=== PATIENT | male | born 1935 | race Caucasian/White ===

== ENCOUNTER 2016-05-25 05:55 | Inpatient (IN) | payer MEDICARE, OTHER ==
--- NOTE | ~2016-05-25 | CR72 ---
[facility] A Service of [facility] & [facility] RADIOLOGY TEXT RESULTS PATIENT: ASHLEY MURRAY LOCATION: [facility]-19 : 33 UNIT #: [id number] AGE: [address]: Victor M Knox MD SEX: M ORDER DR: [id number] [facility] [address] [facility]. [place], [place] [address] [id number] MR#: [id number] Acc #: [id number] NAME: ASHLEY MURRAY. : 1935 SEX: M STUDY DATE/TIME: 05/25/2016 5:24 UNIT: CEDOF ROOM: [id number] STUDY DESCRIPTION: CR Chest Single View Portable Attending Physician: Victor M Knox M.D. Ordering Physician: Lan Rutledge D.O. Primary Care Physician: Cedric Andrews M.D. MEDICAL IMAGING REPORT This report is preliminary unless electronic signature is present EXAM AP portable chest, 05/25/2016 HISTORY 81-year-old male in the ED complaining of 3-week history of nausea, abdomen pain, hematuria. TECHNIQUE AP portable upright chest x-ray. FINDINGS The exam shows no definite active disease in the chest. Mild scarring or atelectasis in the lung bases. Low lung volumes. Stable mild to moderate cardiomegaly. Mid and upper lungs clear. No significant change since 08/31/2013. IMPRESSION No active disease. No change since 08/31/2013. Dictated by... Juliano Michaels M.D. THIS IS AN ELECTRONICALLY VERIFIED REPORT Juliano Michaels M.D. at 05/25/2016 9:54 PM LINK/jamie TD: 05/25/2016 08:19 JOB #: [id number] MEDICAL IMAGING REPORT Page 1 of 1 COPY
--- NOTE | ~2016-05-25 | CO ---
Unit #: [id number] #: [id number] Patient: ASHLEY STAFFORD [id number] [facility]. [place], [place] [address] [id number] Roverto MR#: [id number] NAME: ASHLEY STAFFORD. ROOM: [facility] Age: 81 Sex: M Admission Date: 05/25/2016 : 1935 Attending Physician: Victor M Knox M.D. Primary Care Physician: Cedric Andrews M.D. Consultation Date: 05/25/2016 CONSULTATION REPORT REASON FOR CONSULTATION Acute kidney injury. HISTORY OF PRESENT ILLNESS The patient is an 81-year-old male with multiple chronic medical conditions who presented to the emergency room with actually some GI distress and was found to have an acute ME and has subsequently been taken to the laboratory development technician and has had intervention. We were asked to see because of a pre-cath creatinine of 1.2. I had actually seen the patient about 7 years ago now for some renal problems back in February of 2010. At that time he had had some issues with urinary retention and has subsequently undergone a transurethral resection of the prostate by Dr. Bañuelos. He had acute kidney injury at that time with hypotension while on Diovan and HCTZ. During that hospital admission, it looks like his creatinine went from 2.6 down to 0.8, which is his baseline going into 2013. Coming back from the laboratory development technician, he did have some shortness of breath, and there was some concern about possible dye allergy, so he was given some Benadryl and Medrol, as well as some Lasix. He seems to be doing better now. They have had some issues with his heart rhythm and A fib post cath. He denies any chest discomfort to me, no shortness of breath at the present time. Wood catheter is in place with nonbloody urine. He apparently had some hematuria about a week ago. He says that he has not had anything to drink now for about 4 weeks. He has chronic swelling issues that have actually improved according to him. It sounds like he had been getting some diuretics in addition to Hydrochlorothiazide but was not taking those before coming in. PAST MEDICAL HISTORY His past medical history is significant for coronary artery disease, hypertension, DVT, PE, BPH with urinary retention, gout, hyperlipidemia, alcoholism, polymyalgia rheumatica, A fib. PAST SURGICAL HISTORY Rotator cuff surgery and an inguinal hernia repair, cataract surgery, vasectomy, multiple coronary interventions. HOME MEDICATIONS 1. Valsartan/HCTZ 320/25 mg a day. 2. Allopurinol 300 mg a day. 3. Ecotrin daily. 4. Folic acid 1 mg a day. 5. Warfarin as directed. 6. Ranitidine 150 mg a day. 7. Colcrys as needed. Unit #: [id number] #: [id number] Patient: ASHLEY STAFFORD 8. Vitamin B12 daily. 9. Gas-X as needed. ALLERGIES Morphine, Demerol, shellfish (severe gout). FAMILY HISTORY He denies any family history of kidney problems to me. There is a significant family history, however, of heart disease and hypertension. SOCIAL HISTORY The patient tells me that he has never smoked. Again, last drink was about 4 weeks ago. No drug use. Family not currently present in the room. REVIEW OF SYSTEMS A complete 12-point review of systems was attempted with the above findings. The patient denies any headaches or dizziness at this time. He has had no fever or chills. No nosebleeds, sore throat or earache. No cough or hemoptysis. No hematemesis. No bright red blood per rectum or melena. No rash or itching. No flank pain. No preadmission night sweats or hot flashes. No intolerance to heat or cold. No bleeding issues noted. Unless otherwise indicated, the review of systems was negative. PHYSICAL EXAMINATION VITAL SIGNS: The patient is afebrile. Pulse 143, respiratory rate 24, blood pressure 156/68. Lowest blood pressure was 90/67. GENERAL: This is a pleasant swallow study anxious 81-year-old male who is alert now, seems to be calmer since he arrived in the ICU according to the nurses, in no acute distress. HEENT: Head is atraumatic, normocephalic. Eyes shows pink conjunctiva with no scleral icterus. No nasal drainage or nosebleeds. Oropharynx is without thrush. NECK: Neck shows no rigidity. CARDIOVASCULAR: Heart is tachycardic and irregular with murmur present without rub. RESPIRATORY: Lungs are clear anteriorly at this time, and I did not hear any wheezing or rhonchi. Breathing is nonlabored. ABDOMEN: Abdomen is soft, nontender, nondistended. Bowel sounds are present. EXTREMITIES: No lower extremity clubbing or cyanosis. He has trace ankle edema bilaterally. SKIN: Skin is dry with significant wrinkling in his lower legs and feet. No rashes. GENITOURINARY EXAM: Wood catheter is in place with nonbloody urine. MUSCULOSKELETAL: No joint effusions noted. NEUROLOGIC: Cranial nerves are grossly intact with no gross motor deficits. LYMPHATIC EXAM: There is no neck cervical lymphadenopathy. PSYCHIATRIC EXAM: Noteworthy for some anxiety. Does not appear to be depressed. DIAGNOSTIC STUDIES LABS: CBC today - White count 11, hemoglobin 14, platelet count 143. ABG at 3:20 showed pH of 7.4, pCO2 34, pO2 129, bicarb 23. Urinalysis did have significant white blood cells and bacteria with only 2-5 red blood cells per high-powered field. Culture is pending. Last troponin was 4.1. Lipid profile - Cholesterol was okay. TSH level 1.37. BNP this morning was just 99. Sodium was 131, potassium 4.1, bicarb 26, creatinine 1.2, Unit #: [id number] #: [id number] Patient: ASHLEY STAFFORD albumin normal at 3.5. INR 1.4. Prior to these labs, again, his creatinine was 0.8 in September 2013. Previous urinalyses have demonstrated at most 1+ protein, but most of them have been negative. IMAGING: CT of the abdomen and pelvis was done without contrast. Small right kidney cyst. No visible stones. Chest x-ray done early this morning showed no active disease. ASSESSMENT AND PLAN 1. Acute kidney injury. This appears to be mild and likely related to his ME and Diovan/HCTZ use. This medication is being held, and he just got back from laboratory development technician. His sats are good, as is his oxygenation on ABG, so I will give him some IV fluids to assist with cardiac cath dye clearance. Will also give him 2 doses of Mucomyst and recheck in the morning. 2. Urinary tract infection. The patient has been started on Rocephin with culture pending. Nothing on CT scan that would suggest a cause for the hematuria, so this just may be a UTI. 3. Hypertension. Will defer blood pressure meds to cardiology with his rhythm issues post cath. 4. Hyponatremia. We will be stopping his Hydrochlorothiazide and using saline-based fluids for replacement. 5. ME status post intervention. 6. History of gout. I will check a uric acid level in the morning. 7. Alcoholism with no drinking, per him, for 4 weeks. 8. Chronic lower extremity edema with no need for diuresis at this time. 9. Valvular heart disease with aortic stenosis. 10. History of PE, on Coumadin at home. 11. History of polymyalgia rheumatica. 12. History of BPH status post TURP, now with a Wood. 13. Post cath A fib. I would like thank Dr. Knox for this consultation and the opportunity to participate in the evaluation and care of Mr. Stafford. Dictated by... Mark Fontaine Jr., MKris. DONNA/jaimee TD: 05/26/2016 07:07 JOB #: [id number] CONSULTATION REPORT Page 1 of 1 X Mark Fontaine MD X CONSULTATION REPORT
--- NOTE | ~2016-05-25 | CO ---
Unit #: [id number] #: [id number] Patient: ASHLEY MURRAY [id number] [facility]. [place], [place] [address] [id number] I MR#: [id number] NAME: ASHLEY MURRAY. ROOM: [facility] Age: 81 Sex: M Admission Date: 05/25/2016 : 1935 Attending Physician: Victor M Knox M.D. Primary Care Physician: Cedric Andrews M.D. CONSULTATION REPORT REASON FOR CONSULTATION Possible GI bleed. HISTORY OF PRESENT ILLNESS The patient is an 81-year-old male who actually presented with complaints of epigastric pain for about 3 weeks. He was feeling dizzy and diaphoretic, and was subsequently evaluated in the ER. EKG showed acute ST elevation. Intervention is being completed by Cardiology and he is currently on balloon pump at this time. He is still on multiple drips for Cardiology including both dopamine, Mason-Synephrine, heparin. About a week ago, per the family, he was having complaints of blood in his urine, which has happened intermittently in the past and it has since resolved. Evidently, when the patient had an NG placed, he did have some darker aspirate, however, at this time, the NG has been removed. He is on b.i.d. PPI dosing. PAST MEDICAL HISTORY Coronary artery disease, hypertension, history of DVT and PE, BPH with urinary retention, gout, hyperlipidemia, alcoholism, polymyalgia rheumatica, atrial fibrillation, lupus, rotator cuff surgery, inguinal hernia repair, cataract surgery, vasectomy as well as multiple coronary interventions. HOME MEDICATIONS Valsartan/HCTZ, allopurinol, Ecotrin, folic acid, warfarin, ranitidine, Colcrys, vitamin B12, Gas-X. ALLERGIES Morphine, Demerol and shellfish. FAMILY HISTORY Significant for heart disease and hypertension. SOCIAL HISTORY The patient does drink heavy, however, he has been sober for about 4 weeks. Denies tobacco or illicit drug use. REVIEW OF SYSTEMS A complete 10-point review of systems was completed and negative except as mentioned in HPI. PHYSICAL EXAMINATION GENERAL: The patient is an 81-year-old male, currently in no acute distress. Unit #: [id number] #: [id number] Patient: ASHLEY MURRAY VITAL SIGNS: Temperature is 98.4, pulse is 97, blood pressure is 107/43, respirations 15. HEENT: PERRLA. NECK: Supple. CARDIAC: Murmur present. RESPIRATORY: Clear to auscultation. ABDOMEN: Soft, rounded, nontender, nondistended. EXTREMITIES: The patient does have significant bruising or ecchymoses everywhere. DIAGNOSTIC STUDIES IMAGING STUDIES: CT of abdomen and pelvis was completed, showing no acute abnormalities. LABORATORY RESULTS: Chemistry; glucose 166, BUN and creatinine are 32 and 1.2 respectively, INR is 1.5 yesterday. White count 13.4, hemoglobin 11.2, hematocrit 33.6, and platelets are 113. Hemoglobin at admission was 13.7. ASSESSMENT/PLAN 1. Acute ST-segment elevation myocardial infarction per Cardiology, currently on multiple drips as well as the balloon pump. 2. Questionable gastrointestinal bleed. The patient has had a slight drop in his hemoglobin since he has been here. We will continue to watch for now. At the current time, he is a rather poor candidate for endoscopy just due to his cardiac grounds. If there is acute drop in his hemoglobin, we will consider an EGD at that time. Continue b.i.d. PPI therapy. We will order occult stool to further evaluate GI source of blood loss. 3. Acute kidney injury. 4. Alcohol abuse. Thank you for this interesting consult. We will continue to follow along. Dictated by... Yanique Caldwell A.P.R.N. for Mckay Bales M.D. MENDEL/liedy TD: 05/27/2016 23:53 JOB #: [id number] CONSULTATION REPORT Page 1 of 1 X X CONSULTATION REPORT
--- NOTE | ~2016-05-25 | EKG ---
PATIENT: ASHLEY MURRAY UNIT #: [id number] Ventricular Rate: 167 BPM Atrial Rate: 167 BPM P-R Interval: 128 ms QRS Duration: 70 ms Q-T Interval: 256 ms QTC Calculation(Bezet): 427 ms P [place]: 17 degrees Calculated R [place]: 20 degrees Calculated T [place]: 111 degrees Diagnosis Line: Sinus tachycardia Diagnosis Line: Low voltage QRS Diagnosis Line: Muscle tremor Diagnosis Line: Abnormal ECG Diagnosis Line: When compared with ECG of 25-MAY-2016 13:56, Diagnosis Line: Vent. rate has increased BY 79 BPM Diagnosis Line: ST now depressed in Anterior leads Diagnosis Line: Confirmed by RICHY MISTRY MD ([id number]) on 05/26/2016 Diagnosis Line: 7:47:46 AM INTERPRETING MD: FIDELIA WELLS
--- NOTE | ~2016-05-25 | HP ---
Unit #: [id number] #: [id number] Patient: ASHLEY MURRAY [id number] [facility]. [address] [facility]. [place], [place] [address] [id number] I MR#: [id number] NAME: ASHLEY MURRAY. ROOM: [id number] Age: 81 Sex: M Admission Date: 05/25/2016 : 1935 Attending Physician: Victor M Knox M.D. Primary Care Physician: Cedric Andrews M.D. HISTORY AND PHYSICAL HISTORY OF PRESENT ILLNESS This is an 81 year old with past medical history of coronary artery disease, history of three stents which were last placed in 2008 to the left circumflex and RCA. Also, had a 2D echo in 2009 which showed a LV ejection fraction of 50% to 55% with aortic stenosis, unknown severity, history of pulmonary embolism. He is currently on Coumadin, hypertension, alcohol abuse, benign prostate hypertrophy, polymyalgia rheumatica. He had an EGD in August 2013 which showed nonobstructive Schatzki ring with small hiatal hernia. He also has lupus. He has a hypercoagulable state with lupus and that is why he is currently on anticoagulation. He has had both DVTs and PEs in the past. He was admitted for feeling sick to his stomach type symptoms, epigastric pain that has been present for the last three weeks. Complains of dizziness and diaphoretic, shaking yesterday. He decided to be seen in the ER. On arrival to the emergency room, his EKG showed an acute ST elevation in the lateral wall and his troponin was 1.42. CT of the abdomen and chest was done. No acute abnormality within the abdomen or pelvis. He did have a small benign appearing right renal cyst unchanged from November 21, 2012. Vital signs on admission: Heart rate was 114, blood pressure is 110/63, temperature was 97.9, weight was 114 kg. His BMI was 36. Glucose was found to be 167, sodium 131. BNP was 99. Total cholesterol 123, triglycerides 37, LDL 68, HDL 48. AST was 32. ALT was 42. INR was 1.4. WBC 11.5, hemoglobin 13.7, hematocrit 41.1, platelets 174,000. PAST SURGICAL HISTORY 1. Inguinal hernia repair. 2. Rotator cuff repair. ALLERGIES Morphine, Demerol. HOME MEDICATIONS 1. Losartan/hydrochlorothiazide 320/25 mg daily. 2. Allopurinol 300 mg daily. 3. Aspirin 325 daily. 4. Folic acid 1 mg daily. 5. Coumadin alternate 3 mg and 4 mg daily. 6. Ranitidine 150 mg daily. 7. Colcrys 0.5 mg as needed for gout. 8. Vitamin B12 at 2500 mg daily. 9. Gas-X 125 mg as needed. Unit #: [id number] #: [id number] Patient: ASHLEY MURRAY SOCIAL HISTORY He lives at home. His and family are at the bedside. He has never smoked. There are notes that he consumes alcohol on a binging-type basis. FAMILY HISTORY Reviewed and remarkable for heart disease and high blood pressure. REVIEW OF SYSTEMS A 10-point review of systems was negative except otherwise as noted above in the HPI. PHYSICAL EXAMINATION GENERAL: He is awake and appears in no acute distress. VITAL SIGNS: He is 97.7, pulse 107, respirations 28, 98% on supplemental oxygen, blood pressure 90/67. HEENT: Pupils are equal, round, and reactive to light. Oral mucosa is moist. He has good dentition. Normocephalic and atraumatic. NECK: Supple is supple with no JVD noted. No auscultated bruits. LUNGS: Clear with diminished breath sounds. No wheezes, rales, or rhonchi heard. He has low inspiratory effort. CARDIOVASCULAR: He is in a regular rhythm with tachycardic rate. S1, S2 heard. He has distant heart sounds. ABDOMEN: Distended and soft and nontender. No mass is noted. He does have mild hepatojugular reflux. EXTREMITIES: He has venous stasis, chronic hyperpigmentation to bilateral lower extremities and bilateral lower extremity edema with enlargement of ankles. He has 2+ pulses. He has no calf tenderness. NEUROLOGIC: He has no focal deficits noted. He is alert and oriented x3 and pleasant and cooperative. SKIN: Warm, pink, and dry except for bilateral lower extremities with hyperpigmentation from chronic edema. DIAGNOSTIC STUDIES LABORATORY: Point of care troponin as noted above when he arrived to the ER was 1.42 and on recheck four hours later was 4.17. Chemistry: Sodium 131, potassium 4.1, chloride 96, CO2 of 26, BUN 23, creatinine 1.2, glucose 167. Magnesium is 1.8. AST 32, ALT 42. Amylase 23, lipase 25. BNP 99. Lipids: Cholesterol 123, triglycerides 37, LDL 68, HDL 48. TSH 1.37. PT 15.2, INR 1.4. CK-MB was 32.3. WBC 11.5, hemoglobin 13.5, hematocrit 41.1, platelet count 174,000. Urinalysis was also done. It showed 2+ leukocytes, trace protein, 1 urobilinogen, WBCs 50-100, urine bacteria was 4+. IMAGING: Chest x-ray, May 25, 2016: No active disease. No change since last exam on August 31, 2013. CT abdomen and pelvis as stated above in the HPI. No acute abnormality. CARDIOVASCULAR: A 12-lead EKG showed sinus tachycardia with some premature supraventricular complexes and with frequent PVCs. He did have some ST elevation in lead I, lead II which were quite different than his last EKG which was reviewed and done on August 31, 2013. He had another EKG this morning on May 25, 2016 at 8:03 which showed sinus rhythm with some PACs, low-voltage QRS, again with some nonspecific ST abnormality. It appears lead II, he has some ST elevation mildly, flattening or inverted T-waves possibly in V4 through V6. IMPRESSION Unit #: [id number] #: [id number] Patient: ASHLEY MURRAY 1. Acute ST elevated lateral wall myocardial infarction. 2. Obesity. 3. History of coronary artery disease, status post stenting, last in 2008. 4. Normal left ventricular function with last ejection fraction in 2009 of 50% to 55%. 5. Aortic stenosis with unknown severity. 6. Lupus. 7. History of anticoagulable state with pulmonary embolus and deep venous thrombosis, managed on Coumadin. 8. Hypertension. 9. Alcohol abuse. PLAN We had trended his troponin. His repeat troponin was markedly elevated at 4.17. He will be going for a cardiac cath today per Dr. Knox. Heparin drip has been started with a 5000 unit bolus and Integrilin drip has also been started STAT. He had a 2D echo done this morning that is pending and we will review that. He had a STAT EKG as stated above. We will add labs for the morning and trend his troponin. Further plan post cath per Dr. Ummat. Dictated by RON Giraldo M.D. TA/ch TD: 05/25/2016 10:27 JOB #: [id number] HISTORY AND PHYSICAL Page 1 of 1 X X HISTORY AND PHYSICAL
--- NOTE | ~2016-05-25 | CO ---
Unit #: [id number] #: [id number] Patient: ASHLEY STAFFORD [id number] [facility]. [place], [place] [address] [id number] I MR#: [id number] NAME: ASHLEY STAFFORD. ROOM: [facility] Age: 81 Sex: M Admission Date: 05/25/2016 : 1935 Attending Physician: Victor M Knox M.D. Primary Care Physician: Cedric Andrews M.D. CONSULTATION REPORT We were asked to see him by Dr. Knox. HISTORY OF PRESENT ILLNESS Mr. Stafford is an 81-year-old male followed in my office for many years, who apparently developed abdominal pain about 3 weeks ago. He did see his primary doctor about a week ago, but was given some medicine for nausea. This abdominal pain was more of a dull pain intermittent, but then he worsened and came to the ER on the morning of 05/25/2016. His discomfort became severe and he was shaking, and had some shortness of air, nausea, and diaphoresis. He did already have a known coronary artery disease and has been seen by Dr. Downey in the past as well as Dr. Gibbons. On presentation in the ER, he was initially thought to have pneumonia, but then it was found that he had an ST-elevation NC. He went to the labor representative on 05/25/2016 and had a proximal LAD 99%, which responded to balloon and a stent was placed. He had a mid circumflex 75%. He had an ejection fraction that was quite low at 30% and maybe even as low as 20% and a balloon pump was placed by Dr. Knox; however, he really has not been on the ventilator. Presently, breathing is fairly good for the most part. He has a little bit of a cough. He never smoked. PAST MEDICAL HISTORY Significant for pulmonary embolism, lupus anticoagulant, coronary artery disease, hypertension, benign prostate hypertrophy, gout, hyperlipidemia, alcoholism, Schatzki ring, hiatal hernia, hypertension. MEDICATIONS On admission had included Valsartan-hydrochlorothiazide 320-25 daily, allopurinol 300 mg p.o. daily, Ecotrin 325 mg p.o. daily, folic acid 1 mg daily, Coumadin 3 to 4 mg p.o. daily, Zantac 150 mg p.o. daily, Colcrys 0.6 mg p.o. daily, vitamin B12 25 mg p.o. daily, Gas-X 125 mg p.o. daily. ALLERGIES Morphine, meperidine, shellfish. SOCIAL HISTORY He never smoked. FAMILY HISTORY Significant for heart disease in uncles. No history of lung disease. REVIEW OF SYSTEMS He did have the nausea, but not vomiting. No diarrhea. Appetite has been down a little bit. He has had bruising. All other systems are negative except as mentioned. Unit #: [id number] #: [id number] Patient: ASHLEY STAFFORD PHYSICAL EXAMINATION GENERAL: He presents as an older male, in no acute distress. VITAL SIGNS: Temperature was 97.7, pulse 82, respirations 14, blood pressure 104/67, saturation right now is at 98% on 4 L nasal cannula. NECK: Without adenopathy. He has got a right IJ line. LUNGS: His breathing is not labored. He has inspiratory crackles left base. HEART: Regular. ABDOMEN: Soft. Bowel sounds are present. EXTREMITIES: Without edema. NEUROLOGIC: He is awake and alert. He presentation designer equally bilaterally. He is able to speak in full sentences. DIAGNOSTIC STUDIES LABORATORY RESULTS: He had BMP today with a BUN of 32, creatinine 1.2. Bicarb was 26. His white blood cell count was 15,000, H and H 11 and 33, 113,000 platelets. When he came in, his platelet count was 174,000. His platelet count is only 61,000 in 09/2013. He had urine growing out E. coli sensitive to Rocephin, nonsensitive to ampicillin. He had blood cultures, 2/2 gram negative rods. IMAGING STUDIES: Chest x-ray to my exam revealed right IJ line okay. He has a little bit of increased interstitial markings bilaterally. He has fluid outlying the right minor fissure, may be a little bit of atelectasis versus infiltrate in left base. IMPRESSION 1. Acute on chronic respiratory failure, hypoxemic in nature. 2. Acute ST elevation myocardial infarction. 3. Cardiogenic shock, now on a balloon pump. 4. Coronary artery disease. 5. Sepsis with urinary tract infection, because of E. coli. 6. Alcoholism. 7. Thrombocytopenia. PLAN I will stop the Zosyn and start Rocephin based on sensitivities from the urine. It is likely that Rocephin will do just as well. I would like to watch his platelet count and he may need heparin dependent antibody test. However, it is notable that he has had thrombocytopenia before. He is saturating acceptably presently on 4 L nasal cannula. Thank you very much for allowing me to participate in care. Dictated by... Lulu Lara/leidy TD: 05/27/2016 19:24 JOB #: [id number] CC: Lulu Jesus M.D. Unit #: [id number] #: [id number] Patient: ASHLEY STAFFORD CONSULTATION REPORT Page 1 of 1 X Cameron Banks MD CONSULTATION REPORT
--- NOTE | ~2016-05-25 | EKG ---
PATIENT: ASHLEY MURRAY UNIT #: [id number] Ventricular Rate: 105 BPM Atrial Rate: 105 BPM P-R Interval: 178 ms QRS Duration: 90 ms Q-T Interval: 342 ms QTC Calculation(Bezet): 452 ms P Burton: 61 degrees Calculated R Burton: 8 degrees Calculated T Burton: 56 degrees Diagnosis Line: Sinus tachycardia with Premature supraventricular Diagnosis Line: complexes and with frequent Premature ventricular Diagnosis Line: complexes Diagnosis Line: Nonspecific ST and T wave abnormality Borderline Diagnosis Line: with 1st degree A-V block Diagnosis Line: Abnormal ECG Diagnosis Line: No previous ECGs available Diagnosis Line: Confirmed by JACQUELINE ALCAZAR MD ([id number]) on 05/26/2016 Diagnosis Line: 9:34:40 AM INTERPRETING MD: INGE WELLS
--- NOTE | ~2016-05-25 | EKG ---
PATIENT: ASHLEY MURRAY UNIT #: [id number] Ventricular Rate: 92 BPM Atrial Rate: 92 BPM P-R Interval: 180 ms QRS Duration: 86 ms Q-T Interval: 356 ms QTC Calculation(Bezet): 440 ms P [place]: 73 degrees Calculated R [place]: 10 degrees Calculated T [place]: 72 degrees Diagnosis Line: Sinus rhythm with Premature atrial complexes Diagnosis Line: Low voltage QRS Diagnosis Line: Nonspecific ST and T wave abnormality Diagnosis Line: Abnormal ECG Diagnosis Line: When compared with ECG of 25-MAY-2016 05:17, Diagnosis Line: (unconfirmed) Diagnosis Line: Premature ventricular complexes are no longer Diagnosis Line: Present Diagnosis Line: Confirmed by RICHY MISTRY MD ([id number]) on 05/26/2016 Diagnosis Line: 7:45:23 AM INTERPRETING MD: FIDELIA WELLS
--- NOTE | ~2016-05-25 | EKG ---
PATIENT: ASHLEY MURRAY UNIT #: [id number] Ventricular Rate: 116 BPM Atrial Rate: 116 BPM P-R Interval: 216 ms QRS Duration: 96 ms Q-T Interval: 390 ms QTC Calculation(Bezet): 542 ms P Thomson: 71 degrees Calculated R Thomson: 2 degrees Calculated T Thomson: 149 degrees Diagnosis Line: Sinus tachycardia with 1st degree A-V block with Diagnosis Line: Premature atrial complexes and Premature Diagnosis Line: ventricular complexes or Fusion complexes Diagnosis Line: T wave abnormality, consider anterolateral Diagnosis Line: ischemia Diagnosis Line: Prolonged QT Diagnosis Line: Abnormal ECG Diagnosis Line: When compared with ECG of 26-MAY-2016 06:07, Diagnosis Line: (unconfirmed) Diagnosis Line: Serial changes of evolving Anterior infarct Diagnosis Line: Confirmed by RICHY MISTRY MD ([id number]) on 05/28/2016 Diagnosis Line: 7:23:41 AM INTERPRETING MD: FIDELIA WELLS
--- NOTE | ~2016-05-25 | CR72 ---
[facility] A Service of [facility] & [facility] RADIOLOGY TEXT RESULTS PATIENT: ASHLEY MURRAY LOCATION: [address]19 : [birth year] UNIT #: [id number] AGE: [address]: Victor M Knox MD SEX: M ORDER DR: [id number] [facility] [address] [facility]. [place], [place] [address] [id number] I MR#: [id number] #: [id number] NAME: ASHLEY MURRAY. : 1935 SEX: M STUDY DATE/TIME: 05/29/2016 7:23 UNIT: [facility] ROOM: [facility] STUDY DESCRIPTION: CR Chest Single View Portable Attending Physician: Victor M Knox M.D. Ordering Physician: Victor M Knox M.D. Primary Care Physician: Cedric Andrews M.D. MEDICAL IMAGING REPORT This report is preliminary unless electronic signature is present EXAM Portable chest, 05/29. INDICATION Chest and shortness of air for 3 days. History of coronary artery disease. FINDINGS AP portable chest compared with 05/28/2016. Cardiomegaly is stable. Right IJ line tip at the cavoatrial junction. Balloon pump marker at the AP window level. There is some mild infiltrate or atelectasis at the left base and in the right upper lobe. There are trace effusions. No pneumothorax. Dictated by... Jacques Blair Jr., M.D. THIS IS AN ELECTRONICALLY VERIFIED REPORT Jacques Blair Jr., M.D. at 05/29/2016 4:47 PM BROOKLYNN/christopher TD: 05/29/2016 11:24 JOB #: [id number] MEDICAL IMAGING REPORT Page 1 of 1 COPY
--- NOTE | ~2016-05-25 | EKG ---
PATIENT: ASHLEY MURRAY UNIT #: [id number] Ventricular Rate: 88 BPM Atrial Rate: 88 BPM P-R Interval: 174 ms QRS Duration: 94 ms Q-T Interval: 446 ms QTC Calculation(Bezet): 539 ms P [place]: 57 degrees Calculated R [place]: -3 degrees Calculated T [place]: 148 degrees Diagnosis Line: Sinus rhythm with occasional and consecutive Diagnosis Line: Premature ventricular complexes and Premature Diagnosis Line: atrial complexes Diagnosis Line: Possible Inferior infarct , age undetermined Diagnosis Line: T wave abnormality, consider anterolateral Diagnosis Line: ischemia Serial changes of evolving Anterior Diagnosis Line: infarct Diagnosis Line: Prolonged QT Diagnosis Line: Abnormal ECG Diagnosis Line: When compared with ECG of 26-MAY-2016 15:55, Diagnosis Line: (unconfirmed) Diagnosis Line: Fusion complexes are no longer Present Diagnosis Line: NM interval has decreased Diagnosis Line: Confirmed by RICHY MISTRY MD ([id number]) on 05/28/2016 Diagnosis Line: 7:28:05 AM INTERPRETING MD: FIDELIA WELLS
--- NOTE | ~2016-05-25 | EKG ---
PATIENT: ASHLEY MURRAY UNIT #: [id number] Ventricular Rate: 86 BPM Atrial Rate: 86 BPM P-R Interval: 182 ms QRS Duration: 86 ms Q-T Interval: 440 ms QTC Calculation(Bezet): 526 ms P [place]: 138 degrees Calculated R [place]: 4 degrees Calculated T [place]: 141 degrees Diagnosis Line: Normal sinus rhythm with Premature atrial Diagnosis Line: complexes with Aberrant conduction Diagnosis Line: T wave abnormality, consider anterolateral Diagnosis Line: ischemia Diagnosis Line: Prolonged QT Diagnosis Line: Abnormal ECG Diagnosis Line: When compared with ECG of 27-MAY-2016 06:17, Diagnosis Line: (unconfirmed) Diagnosis Line: Borderline criteria for Inferior infarct are no Diagnosis Line: longer Present Diagnosis Line: T wave inversion less evident in Lateral leads Diagnosis Line: Confirmed by RICHY MISTRY MD ([id number]) on 05/28/2016 Diagnosis Line: 7:31:39 AM INTERPRETING MD: FIDELIA WELLS
--- NOTE | ~2016-05-25 | A ---
[facility] Nutrition Therapy DATE: 05/26/16 Patient: ASHLEY MURRAY Physician: NINI Address: [address] [place] [address] Room/Bed: [address], Zip: [place] [address] Admit Date: 05/25/16 Date of : [birth year] Height: 5 10 Weight: 257 117 NUTRITIONAL ASSESSMENT: REASON: 4 nutrition risk pts RE: 15# wt loss, eating poorly 81 y/o male admitted for nausea, stomach pain, hiatal hernia PMH: CAD (s/p stents), HTN, ETOH abuse, polymyalgia rheumatica, pulmonary embolism, GERD, lupus, nonobstructive Schatzki ring, gout Anthropometrics: Ht: 5'10" Wt: ranges from 109.1-116.8 kg (240-257#) BMI: 35.7 (average wt) Labs: Na+ 132, Cl- 98, Gluc 232, BUN 27, Ca++ 7.8 Meds: Protonix, NaCl, K, Mg, Zofran, Furosemide, Dopamine, Lipitor, Vitamin B12, Folic Acid I/O & Bowel function: 2888/1450, last BM unknown Skin Integrity: Puncture procedural site (R wrist), scab (L hand), bruises/discoloration noted Edema: BLE 1+ Assessment: Chart reviewed, events noted. Pt is currently on balloon pump in ICU. Unable to visit d/t pt being lethargic, RN request. Per RN, pt has lost 15# d/t stress of recent passing of daughter and grandson. Per [employer], pt reports eating poorly and avoiding shellfish d/t gout flareups. Of note, the pt has a h/o nonobstructive Schatzki ring (narrowing of lower esophagus), which can cause dysphagia. RN reports that family and pt deny any symptoms of dysphagia/ aspiration. RN requested supplements, RD recommends Ensure Pudding until CIRCUS RIDER eval. See recommendations below. Dx: Inadequate energy intake RT stress, current clinical condition AEB 15# wt loss, eating poorly. Intervention: 1. CIRCUS RIDER eval 2. Ensure Pudding TID Monitoring, Evaluation and Goals: 1. PO intake; consume ~80-100% of estimated nutrition needs 2. Weight; prevent further unintentional weight loss [facility] Nutrition Therapy DATE: 05/26/16 Patient: ASHLEY MURRAY Physician: NINI Address: [address] [place] [address] Room/Bed: [address], Zip: [place] [address] Admit Date: 05/25/16 Date of : [birth year] Height: 5 10 Weight: 257 117 3. Labs; WNL: gluc, electrolytes Recommendations: 1. CIRCUS RIDER evaluation due to GI history and pt laying flat on balloon pump. 2. Order Ensure Pudding TID Pt is at a moderate nutriton risk. RD will f/u per protocol. Respectfully, KAMALA JOHN, Plant Operations Worker Patricia Montano, RD, LD Food and Nutritional Services [facility] cc: client file
--- NOTE | ~2016-05-25 | EKG ---
PATIENT: ASHLEY MURRAY UNIT #: [id number] Ventricular Rate: 88 BPM Atrial Rate: 88 BPM P-R Interval: 186 ms QRS Duration: 100 ms Q-T Interval: 368 ms QTC Calculation(Bezet): 445 ms P [place]: 81 degrees Calculated R [place]: 0 degrees Calculated T [place]: 53 degrees Diagnosis Line: Normal sinus rhythm Diagnosis Line: Nonspecific T wave abnormality Diagnosis Line: Abnormal ECG Diagnosis Line: When compared with ECG of 25-MAY-2016 08:03, Diagnosis Line: (unconfirmed) Diagnosis Line: Premature atrial complexes are no longer Present Diagnosis Line: Confirmed by RICHY MISTRY MD ([id number]) on 05/26/2016 Diagnosis Line: 7:46:56 AM INTERPRETING MD: FIDELIA WELLS
--- NOTE | ~2016-05-25 | CR7 ---
[facility] A Service of [facility] RADIOLOGY TEXT RESULTS PATIENT: ASHLEY MURRAY LOCATION: [address]19 : [birth year] UNIT #: [id number] AGE: [address]: Victor M Knox MD SEX: M ORDER DR: [id number] [facility] [address] [facility]. [place], [place] [address] [id number] I MR#: [id number] #: [id number] NAME: ASHLEY MURRAY. : 1935 SEX: M STUDY DATE/TIME: 05/25/2016 16:25 UNIT: [facility] ROOM: [facility] STUDY DESCRIPTION: CR Abdomen Single AP View Attending Physician: Victor M Knox M.D. Ordering Physician: Victor M Knox M.D. Primary Care Physician: Cedric Andrews M.D. MEDICAL IMAGING REPORT This report is preliminary unless electronic signature is present EXAM Supine radiograph of the abdomen 05/25/2016 HISTORY Abdominal distension, hypoactive bowel sounds. Abdomen distension. Short of air leak. Nausea. TECHNIQUE AP radiographs of the abdomen are presented. COMPARISON 08/01/2013. Comparison also made to CT examination from earlier today. FINDINGS Enteric tube extends below the diaphragm. It would appear to terminate in the region of gastric fundus pointed cephalad. The patient has a slightly elevated left hemidiaphragm as seen on prior examinations. Side port of the enteric tube appears to be in the proximal stomach. The bony structures are unremarkable. There is no free air. Bowel gas pattern shows mild air distension of multiple small bowel loops similar appearance to earlier CT examination. No pathologic dilatation. Air and stool seen throughout the colon. There is no compelling indication of small bowel obstruction. Mild ileus might be considered in the appropriate clinical context. Weight should be given the clinical assessment. No free air. Where visible the solid organ contours are unremarkable. Minimal patchy densities at the left lung base probably atelectatic in nature. No indication of basilar dense airspace disease. Dictated by... González Girard M.D. [facility] A Service of [facility] & [facility] RADIOLOGY TEXT RESULTS PATIENT: ASHLEY MURRAY LOCATION: [facility]3-19 : 33 UNIT #: [id number] AGE: [address]: Victor M Knox MD SEX: M ORDER DR: THIS IS AN ELECTRONICALLY VERIFIED REPORT González Girard M.D. at 05/26/2016 8:05 PM BLANCA/jordy TD: 05/25/2016 18:50 JOB #: [id number] MEDICAL IMAGING REPORT Page 1 of 1 COPY
--- NOTE | ~2016-05-25 | CR72 ---
[facility] A Service of [facility] & [facility] RADIOLOGY TEXT RESULTS PATIENT: ASHLEY MURRAY LOCATION: [address]3-19 : [birth year] UNIT #: [id number] AGE: [address]: Victor M Knox MD SEX: M ORDER DR: [id number] [facility] [address] [facility]. [place], [place] [address] [id number] I MR#: [id number] Acc #: [id number] NAME: ASHLEY MURRAY. : 1935 SEX: M STUDY DATE/TIME: 05/28/2016 4:38 UNIT: [facility] ROOM: [facility] STUDY DESCRIPTION: CR Chest Single View Portable Attending Physician: Victor M Knox M.D. Ordering Physician: Cameron Banks M.D. Primary Care Physician: Cedric Andrews M.D. MEDICAL IMAGING REPORT This report is preliminary unless electronic signature is present EXAM Portable AP view of the chest, 05/28/2016 COMPARISON May 26, 2016; May 25, 2016 INDICATION 81-year-old male with hypertension and recent myocardial infarction. Shock and gastric pain for 3 days. Intra-aortic balloon pump. FINDINGS AND IMPRESSION Exam limited by rightward patient rotation. There is a right internal jugular catheter with the tip terminating near the cavoatrial junction, grossly stable. Aortic balloon pump marker is again noted with the marker terminating approximately the T6 level on the left. Cardiomediastinal silhouette is difficult to evaluate given rotation, but appears widened, likely due to this rotation. There is no evidence of pneumothorax or pleural effusion. There is diffuse prominence of the pulmonary interstitium, not significantly changed from comparison and possibly representing mild pulmonary vascular congestion. No evidence of pneumonia. Dictated by... Suresh Juarez M.D. THIS IS AN ELECTRONICALLY VERIFIED REPORT Suresh Juarez M.D. at 05/30/2016 4:15 PM PRATEEK/maribel TD: 05/28/2016 21:58 JOB #: [id number] [facility] A Service of [facility] & [facility] RADIOLOGY TEXT RESULTS PATIENT: ASHLEY MURRAY [facility] [birth year] UNIT #: [id number] AGE: [address]: Victor M Knox MD SEX: M ORDER DR: MEDICAL IMAGING REPORT Page 1 of 1 COPY
--- NOTE | ~2016-05-25 | CR72 ---
[facility] A Service of [facility] RADIOLOGY TEXT RESULTS PATIENT: ASHLEY MURRAY LOCATION: [facility] : 33 UNIT #: [id number] AGE: [address]: Victor M Knox MD SEX: M ORDER DR: [id number] [facility] [address] [facility]. [place], [place] [address] [id number] I MR#: [id number] Acc #: [id number] NAME: ASHLEY MURRAY. : 1935 SEX: M STUDY DATE/TIME: 05/25/2016 15:24 UNIT: [facility] ROOM: [facility] STUDY DESCRIPTION: CR Chest Single View Portable Attending Physician: Victor M Knox M.D. Ordering Physician: Victor M Knxo M.D. Primary Care Physician: Cedric Andrews M.D. MEDICAL IMAGING REPORT This report is preliminary unless electronic signature is present EXAM AP portable chest. DATE OF EXAM 05/25/2016, 15:24. HISTORY Status post cardiac catheterization. COMPARISON AP portable chest, 05/25/2016. FINDINGS Low volume inspiration. Right middle lung atelectasis or scarring with probable trace thickening of a minor fissure, unchanged. Stable hgjr-bz-nirdqwgy cardiac enlargement. Minimal bibasilar linear atelectasis or scarring unchanged. No dense lung consolidations. No definite pleural effusion or pneumothorax or acute osseous abnormality. IMPRESSION 1. Stable findings compared to earlier today. Minimal right midlung atelectasis or scarring. Minimal linear bibasilar atelectasis or scarring. 2. Stable cardiac enlargement. Dictated by... Sugar Luis M.D. THIS IS AN ELECTRONICALLY VERIFIED REPORT Sugar Luis M.D. at 05/25/2016 5:02 PM ESTEFANIA/[facility] A Service of [facility] RADIOLOGY TEXT RESULTS PATIENT: ASHLEY MURRAY LOCATION: [facility]3 [facility]IC[facility]3-19 : [birth year] UNIT #: [id number] AGE: [address]: Victor M Knox MD SEX: M ORDER DR: TD: 05/25/2016 16:39 JOB #: [id number] MEDICAL IMAGING REPORT Page 1 of 1 COPY
--- NOTE | ~2016-05-25 | EKG ---
PATIENT: ASHLEY MURRAY UNIT #: [id number] Ventricular Rate: 134 BPM Atrial Rate: 134 BPM QRS Duration: 90 ms Q-T Interval: 340 ms QTC Calculation(Bezet): 507 ms Calculated T [place]: 57 degrees Diagnosis Line: Sinus tachycardia Premature ventricular complexes Diagnosis Line: Premature atrial complexes Diagnosis Line: ST elevation in Anterolateral leads Diagnosis Line: Abnormal ECG Diagnosis Line: When compared with ECG of 25-MAY-2016 14:56, Diagnosis Line: (unconfirmed) Diagnosis Line: Non-specific change in ST segment in Inferior Diagnosis Line: leads Diagnosis Line: ST elevation has replaced ST depression in Diagnosis Line: Anterior leads Diagnosis Line: Confirmed by RICHY MISTRY MD ([id number]) on 05/26/2016 Diagnosis Line: 7:50:54 AM INTERPRETING MD: FIDELIA WELLS
--- NOTE | ~2016-05-25 | EKG ---
PATIENT: ASHLEY MURRAY UNIT #: [id number] Ventricular Rate: 86 BPM Atrial Rate: 86 BPM P-R Interval: 178 ms QRS Duration: 94 ms Q-T Interval: 428 ms QTC Calculation(Bezet): 512 ms P [place]: 57 degrees Calculated R [place]: 4 degrees Calculated T [place]: 124 degrees Diagnosis Line: Sinus rhythm with Premature supraventricular Diagnosis Line: complexes with occasional Premature ventricular Diagnosis Line: complexes and Fusion complexes Diagnosis Line: T wave abnormality, consider anterolateral Diagnosis Line: ischemia /injury Diagnosis Line: Prolonged QT Diagnosis Line: Abnormal ECG Diagnosis Line: When compared with ECG of 27-MAY-2016 16:38, Diagnosis Line: (unconfirmed) Diagnosis Line: No significant change was found Diagnosis Line: Confirmed by MICHELLE MAKI MD ([id number]) on Diagnosis Line: 05/28/2016 2:21:00 PM INTERPRETING MD: ARTURO
--- NOTE | ~2016-05-25 | US84 ---
[id number] [facility]. [facility] [address] [place], [place] [address] [id number] I MR#: [id number] Acc #: [id number] NAME: ASHLEY MURRAY : 1935 SEX: M STUDY DATE/TIME: 05/26/2016 11:09 UNIT: [facility] ROOM: [facility] STUDY DESCRIPTION: US LE Veins Complete Shahbaz Stdy Attending Physician: Victor M Knox M.D. Ordering Physician: Victor M Knox M.D. Primary Care Physician: Cedric Andrews M.D. MEDICAL IMAGING REPORT This report is preliminary unless electronic signature is present EXAM Bilateral lower extremity venous duplex scan date of examination 05/26/2016 HISTORY Bilateral lower extremity swelling. History of deep venous thrombosis and pulmonary embolus. FINDINGS High resolution B-mode imaging and color flow Doppler analysis was performed of the deep and superficial veins of the lower extremities bilaterally. All veins are fully compressible with no evidence of intraluminal thrombus. There are paired femoral veins noted in the right thigh. Spontaneous and phasic flow is noted in the common femoral, deep femoral, femoral, and popliteal veins bilaterally. Flow is demonstrated in the anterior tibial, posterior tibial, and peroneal veins on both sides. Flow is also present in the great saphenous veins bilaterally. IMPRESSION Normal venous examination of the lower extremities bilaterally. No deep or superficial vein thrombosis is demonstrated in either leg. Dictated by... Mark Villar M.D. THIS IS AN ELECTRONICALLY VERIFIED REPORT Mark Villar M.D. at 05/29/2016 8:33 AM JULIO CESAR/margareth TD: 05/26/2016 23:06 JOB #: [id number] MEDICAL IMAGING REPORT Page 1 of 1 COPY
--- NOTE | ~2016-05-25 | EKG ---
PATIENT: ASHLYE MURRAY UNIT #: [id number] Ventricular Rate: 122 BPM Atrial Rate: 115 BPM QRS Duration: 96 ms Q-T Interval: 318 ms QTC Calculation(Bezet): 453 ms Calculated R [place]: 6 degrees Calculated T [place]: 147 degrees Diagnosis Line: Sinus tachycardia with frequent Premature atrial Diagnosis Line: complexes Diagnosis Line: T wave abnormality, consider lateral ischemia Diagnosis Line: Abnormal ECG Diagnosis Line: When compared with ECG of 25-MAY-2016 16:21, Diagnosis Line: T wave inversion now evident in Anterior leads Diagnosis Line: ST elevation consider anterior injury or acute Diagnosis Line: infarct Diagnosis Line: Confirmed by RICHY MISTRY MD ([id number]) on 05/28/2016 Diagnosis Line: 7:19:24 AM INTERPRETING MD: FIDELIA WELLS
--- NOTE | ~2016-05-25 | CT4 ---
[facility] A Service of [facility] & [facility] RADIOLOGY TEXT RESULTS PATIENT: ASHLEY MURRAY [facility] UNIT #: [id number] AGE: [address]: Victor M Knox MD SEX: M ORDER DR: [id number] [facility] [address] [place], [place] [address] [id number] I MR#: [id number] Acc #: [id number] NAME: ASHLEY MURRAY. : 1935 SEX: M STUDY DATE/TIME: 05/25/2016 5:25 UNIT: [facility] ROOM: [id number] STUDY DESCRIPTION: CT Abd and Pelv Wo Cont Attending Physician: Victor M Knox M.D. Ordering Physician: Lan Rutledge D.O. Primary Care Physician: Cedric Andrews M.D. MEDICAL IMAGING REPORT This report is preliminary unless electronic signature is present EXAM CT abdomen and pelvis, noncontrast, kidney stone protocol 05/25/2016 HISTORY 81-year-old male in the ED complaining of 3-week history of left upper abdomen pain, nausea and hematuria. Dysuria. Weakness. TECHNIQUE CT examination of the abdomen and pelvis was performed without oral or IV contrast using kidney stone protocol. This CT exam was performed with one or more of the following radiation dose reduction techniques: automatic exposure control, adjustment of mA and/or kV according to patient size, and iterative reconstruction. COMPARISON CT abdomen/pelvis, 11/21/2012. FINDINGS ABDOMEN: Small cyst arising from the mid portion of the right kidney posteriorly. No visible nephrolithiasis. No evidence of urinary obstruction. Kidneys, ureters and bladder are, otherwise, negative. No etiology for the patient's reported hematuria is visible. Small benign left adrenal adenoma is unchanged. Liver, pancreas and spleen are normal in size and appearance, as imaged. Nondistended gallbladder. No bile duct dilatation. Small bowel and colon are normal in caliber and appearance, as imaged. The appendix is normal. Normal-caliber abdominal aorta. PELVIS FINDINGS: Urinary bladder is nondistended. Rectum is negative. No inguinal hernia. No suspicious mass, adenopathy, or fluid collection is seen within the abdomen or pelvis. Limited lung base images show no active disease in the lower chest. [facility]. [facility] A Service of [facility] RADIOLOGY TEXT RESULTS PATIENT: ASHLEY MURRAY [facility] 33 UNIT #: [id number] AGE: [address]: Victor M Knox MD SEX: M ORDER DR: IMPRESSION 1. No acute abnormality within the abdomen or pelvis. No visible nephrolithiasis or evidence of urinary obstruction. 2. Small benign-appearing right renal cyst, unchanged since 11/21/2012. No etiology for the patient's reported hematuria is identified. 3. Small benign left adrenal adenoma, unchanged since the prior exam. Dictated by... Juliano Michaels M.D. THIS IS AN ELECTRONICALLY VERIFIED REPORT Juliano Michaels M.D. at 05/25/2016 9:54 PM LINK/sondra TD: 05/25/2016 08:24 JOB #: [id number] MEDICAL IMAGING REPORT Page 1 of 1 COPY
--- NOTE | ~2016-05-25 | OR ---
Unit #: [id number] #: [id number] Patient: ASHLEY MURRAY [id number] [address] [place], [place] [address] [id number] I MR#: [id number] NAME: ASHLEY MURRAY ROOM: [facility] Date of Procedure: 05/25/2016 Admission Date: 05/25/2016 Surgeon: Kenneth Hauser M.D. : 1935 Attending Physician: Victor M Knox M.D. Primary Care Physician: Cedric Andrews M.D. PROCEDURE OPERATIVE NOTE REASON FOR PROCEDURE Shock. PREOPERATIVE DIAGNOSIS Shock. POSTOPERATIVE DIAGNOSIS Shock. PROCEDURE PERFORMED Right jugular central venous catheter placement. DETAILS PROCEDURE After placing the patient in the proper position and prepped the right side of the neck with ChloraPrep and modified Seldinger technique under ultrasound guidance Triple lumen central venous catheter placed in the right internal jugular vein. All three ports flushed and working. Guidewire was removed in total. Dictated by... Lulu Daniel/bee TD: 05/27/2016 14:23 JOB #: [id number] PROCEDURE OPERATIVE NOTE Page 1 of 1 X Kenneth Hauser MD X PROCEDURE OPERATIVE NOTE
--- NOTE | ~2016-05-25 | DS ---
Unit #: [id number] #: [id number] Patient: ASHLEY STAFFORD [id number] [facility]. [place], [place] [address] [id number] I MR#: [id number] NAME: ASHLEY STAFFORD. ROOM: 569 Age: 81 Sex: M Admission Date: 05/25/2016 : 1935 Discharge Date: 06/05/2016 Attending Physician: Vcitor M Knox M.D. Primary Care Physician: Cedric Andrews M.D. DISCHARGE SUMMARY ADMITTING DIAGNOSES 1. Acute anterior wall ST elevation myocardial infarction. 2. Coronary artery disease with a history of stent in 2008. 3. Aortic stenosis. 4. Lupus. 5. History of pulmonary embolus and DVT, on Coumadin. 6. Hypertension. 7. Alcohol abuse. 8. Last reported left ventricular ejection fraction in 2009 of 50%-55%. DISCHARGE DIAGNOSES 1. Acute anterior wall ST elevation myocardial infarction. 2. Coronary artery disease with a history of stent in 2008. 3. Status post LAD stent, left circumflex stent unsuccessful, RCA stent patent. 4. Aortic stenosis. 5. Lupus. 6. History of pulmonary embolus and DVT, on Coumadin. 7. Hypertension. 8. Alcohol abuse. 9. Systolic congestive heart failure with an ejection fraction of 15%-20%. 10. Ischemic cardiomyopathy. 11. Urosepsis, resolved. PROCEDURES PERFORMED 1. On 05/25/2016 the patient had a 2-D echo Doppler. This was a technically extremely limited study. The ejection fraction was severely reduced with an left ventricular ejection fraction of 15%-20%. There was a large area of wall motion abnormality involving the entire anterior wall, anteroapical and anteroseptal wall of the left ventricle, consistent with a large myocardial infarction. There was no pericardial effusion. The mitral, aortic, tricuspid and pulmonic valves were not well visualized. The left atrium was mildly dilated. The right atrium and right ventricle were not clearly visualized. 2. The patient had a left heart catheterization on 05/25/[address] Knox. The left ventriculogram showed a large anterolateral apical aneurysmal dyskinesis. The left main was normal. The LAD had a 99% stenosis. The left circumflex had a mid 80% stenosis. The RCA had an ostial 75% stenosis and the stent in the RCA was patent. The patient received angioplasty and stent placement to the LAD. Intraaortic balloon pump was also placed. Unit #: [id number] #: [id number] Patient: ASHLEY STAFFORD [facility] The patient is an 81-year-old male with a history of coronary artery disease, who presented to the emergency department on 05/25/2016 with complaints of epigastric pain, dizziness and diaphoresis. His EKG showed lateral wall ST elevation and his initial troponin was 1.42. The patient had a CT of his abdomen and chest which showed no acute abnormality. His repeat troponin was 4.17 and he was set up for a cardiac catheterization with Dr. Knox. The patient was also started on heparin and Integrilin at that time. Please see above for left heart catheterization details. Following the procedure the patient also had concerns for sepsis with a urinary tract infection and was started on IV antibiotics. The patient did develop some acute kidney insufficiency which was mild and Dr. Blair with nephrology was consulted. His valsartan and Lasix were discontinued and he was placed on IV fluids and Mucomyst. He also had some hypotension and was started on dobutamine. The patient also developed paroxysmal atrial fibrillation with rapid ventricular response and was started on amiodarone. Dr. Blaes was also consulted for possible GI bleed. At the time of consultation on 05/27/2016, it was felt he was a poor candidate for endoscopy due to his cardiac status. GI recommended to continue PPI. Intraaortic balloon pump was discontinued on 05/29/2016. However, the patient remained hypotensive on dopamine and Mason Synephrine, and also amiodarone was continued. IV antibiotics were continued as well. The patient was started on metoprolol on 06/01/2016 with parameters. The patient was also followed by physical therapy and they advised subacute rehab at the time of discharge. The patient continued to improve. Ramipril had also been started when the patient had an episode of near syncope on 06/02/2016 and this was discontinued. The patient's beta carlos was changed to Toprol XL 12.5 mg b.i.d. on 06/04/2016. At the time of discharge the patient tells me he is much improved and denies problems with chest pain or shortness of breath. He does require assistance with transfers and ambulation. PHYSICAL EXAMINATION VITALS: At the time of discharge the patient's vitals are stable. Blood pressure 121/61, heart rate 72 and regular, respiratory rate 18, temperature 98.2 and O2 saturations 100% on room air. GENERAL: Well-developed, well-nourished obese male in no acute distress. Alert and oriented times three. NECK: No jugular venous distension. CARDIAC: Regular rate and rhythm without murmur, gallop or lift. PULMONARY: Clear to auscultation bilaterally without wheezes, rhonchi or rales. ABDOMEN: Soft, nontender and nondistended. Positive bowel sounds times four. EXTREMITIES: No clubbing, cyanosis or edema. DISCHARGE MEDICATIONS 1. Amiodarone 200 mg b.i.d. until 06/09/2016. At that time he will change to 200 mg daily. 2. Tylenol 650 mg q.4 h. p.r.n. 3. Eliquis 2.5 mg b.i.d. 4. Simethicone 125 mg daily. 5. Xanax 0.25 mg b.i.d. 6. Toprol XL 12.5 mg b.i.d. 7. Lasix 20 mg b.i.d. 8. Lipitor 80 mg at nighttime. 9. Aspirin 81 mg daily. 10. Plavix 75 mg daily. Unit #: [id number] #: [id number] Patient: ASHLEY STAFFORD 11. Protonix 40 mg q.12 h. 12. Potassium 20 mEq daily. 13. Sublingual nitroglycerin 0.4 mg q.5 minutes p.r.n. 14. Folic acid. 15. Vitamin B12 2500 mcg daily. DISCHARGE INSTRUCTIONS 1. Mr. Stafford has been set up with [facility]. 2. He will be discharged to [facility] subacute rehab. 3. He would likely benefit from cardiac rehab following his subacute rehab. 4. He will follow up with Dr. Knox on 08/14/2016. 5. Heart healthy as well as monitoring daily weights has been advised. 6. Alcohol cessation advised. Dictated by... Ellen Panda, P.A.C. for Victor M Knox M.D. JW/april TD: 06/05/2016 11:57 JOB #: [id number] DISCHARGE SUMMARY Page 1 of 1 X X DISCHARGE SUMMARY
--- NOTE | ~2016-05-25 | CR72 ---
[facility] A Service of [facility] & [facility] RADIOLOGY TEXT RESULTS PATIENT: ASHLEY MURRAY LOCATION: [facility] 569-01 : 33 UNIT #: [id number] AGE: [address]: Victor M Knox MD SEX: M ORDER DR: [id number] [facility] [address] [place], [place] [address] [id number] I MR#: [id number] Acc #: [id number] NAME: ASHLEY MURRAY. : 1935 SEX: M STUDY DATE/TIME: 06/01/2016 4:54 UNIT: [facility] ROOM: [facility] STUDY DESCRIPTION: CR Chest Single View Portable Attending Physician: Victor M Knox M.D. Ordering Physician: Jaye Jo M.D. Primary Care Physician: Cedric Andrews M.D. MEDICAL IMAGING REPORT This report is preliminary unless electronic signature is present EXAM Frontal chest 06/01/2016 INDICATION Shortness of air chest pain, myocardial infarction. Symptoms since 05/25/2016. TECHNIQUE Frontal chest compared with 05/30/2016. FINDINGS Right-sided central line from a neck approach unchanged at the cavoatrial junction level. Cardiac silhouette is stable. Vascularity unremarkable. There is no new dense consolidation, pneumothorax or effusion. Chronic faint atelectasis or scar associated with the minor fissure. No pneumothorax. Minimal pleural thickening in the left CP angle. IMPRESSION 1. Right-sided central line is unchanged. No pneumothorax. 2. There is no new effusion or dense consolidation. Probable pleural thickening or trace amount of pleural fluid blunting the left CP angle. Chronic-appearing atelectasis or scarring associated with the minor fissure. Dictated by... Greg Fitzgerald M.D. THIS IS AN ELECTRONICALLY VERIFIED REPORT Greg Fitzgerald M.D. at 06/01/2016 10:02 PM JOJO/avery TD: 06/01/2016 07:58 [facility] A Service of [facility] RADIOLOGY TEXT RESULTS PATIENT: ASHLEY MURRAY LOCATION: [facility] 569-01 : [birth year] UNIT #: [id number] AGE: [address]: Victor M Knox MD SEX: M ORDER DR: JOB #: [id number] MEDICAL IMAGING REPORT Page 1 of 1 COPY
--- NOTE | ~2016-05-25 | CR72 ---
[facility] A Service of [facility] & [facility] RADIOLOGY TEXT RESULTS PATIENT: ASHLEY MURRAY LOCATION: [address] : [birth year] UNIT #: [id number] AGE: [address]: Victor M Knox MD SEX: M ORDER DR: [id number] [facility] [address] [place], [place] [address] [id number] I MR#: [id number] #: [id number] NAME: ASHLEY MURRAY. : 1935 SEX: M STUDY DATE/TIME: 05/26/2016 4:58 UNIT: [facility] ROOM: [facility] STUDY DESCRIPTION: CR Chest Single View Portable Attending Physician: Victor M Knox M.D. Ordering Physician: Victor M Knox M.D. Primary Care Physician: Cedric Andrews M.D. MEDICAL IMAGING REPORT This report is preliminary unless electronic signature is present EXAM AP portable chest, 05/26/2016 HISTORY Intraaortic balloon pump placement. TECHNIQUE AP portable chest x-ray. FINDINGS The tip of the intraaortic balloon pump appears well positioned in the upper descending thoracic aorta about 4.0 cm below the upper margin of the distal aortic arch. Right IJ central line tip is in the right atrium. No pneumothorax. Stable cardiomegaly. Low lung volumes. Scarring or atelectasis right midlung and left lung base. IMPRESSION IABP in good position. Dictated by... Juliano Michaels M.D. THIS IS AN ELECTRONICALLY VERIFIED REPORT Juliano Michaels M.D. at 05/30/2016 5:01 PM LINK/jamie TD: 05/26/2016 08:46 JOB #: [id number] MEDICAL IMAGING REPORT [facility] A Service of [facility] & [facility] RADIOLOGY TEXT RESULTS PATIENT: ASHLEY MURRAY LOCATION: [facility] : 33 UNIT #: [id number] AGE: [address]: Victor M Knox MD SEX: M ORDER DR: Page 1 of 1 COPY
--- NOTE | ~2016-05-25 | EKG ---
PATIENT: ASHLEY MURRAY UNIT #: [id number] Ventricular Rate: 92 BPM Atrial Rate: 92 BPM P-R Interval: 182 ms QRS Duration: 88 ms Q-T Interval: 400 ms QTC Calculation(Bezet): 494 ms P [place]: 2 degrees Calculated T [place]: 161 degrees Diagnosis Line: Normal sinus rhythm Diagnosis Line: T wave abnormality, consider anterolateral Diagnosis Line: ischemia Diagnosis Line: Prolonged QT Diagnosis Line: Abnormal ECG Diagnosis Line: When compared with ECG of 28-MAY-2016 05:45, Diagnosis Line: Fusion complexes are no longer Present Diagnosis Line: Premature ventricular complexes are no longer Diagnosis Line: Present Diagnosis Line: Premature supraventricular complexes are no longer Diagnosis Line: Present Diagnosis Line: T wave inversion more evident in Lateral leads Diagnosis Line: Confirmed by RICHY MISTRY MD ([id number]) on 05/30/2016 Diagnosis Line: 10:24:18 PM INTERPRETING MD: FIDELIA WELLS
--- NOTE | ~2016-05-25 | CO ---
Unit #: [id number] #: [id number] Patient: ASHLEY MURRAY [id number] [address] [place], [place] [address] [id number] I MR#: [id number] NAME: ASHLEY MURRAY. ROOM: [facility] Age: 81 Sex: M Admission Date: 05/25/2016 : 1935 Attending Physician: Victor M Knox M.D. Primary Care Physician: Cedric Andrews M.D. CONSULTATION REPORT REASON FOR CONSULTATION Critical care management. CHIEF COMPLAINT Chest pain. HISTORY OF PRESENT ILLNESS This is an 81-year-old male with past medical history of coronary artery disease who presented with the complaint of nausea, vomiting and epigastric discomfort. EKG showed acute ST-elevation myocardial infarction. The patient has undergone cardiac catheterization and is hypertensive and is currently undergoing balloon pump placement by Dr. Knox. I am seeing him at the bedside. He is awake, alert and follows some commands. Denies any nausea or vomiting at this point. PAST MEDICAL HISTORY Significant for: 1. Coronary artery disease. 2. Hypertension. 3. Chronic anticoagulation. 4. Alcohol abuse. 5. History of pulmonary embolism. 6. History of lupus anticoagulant. 7. Gout. 8. Dyslipidemia. 9. Peripheral edema. SOCIAL HISTORY Positive for alcohol abuse. FAMILY HISTORY None as per record. REVIEW OF SYSTEMS Positive for pallor, positive for edema, no cyanosis, no jaundice and the rest is as per the history of present illness. The rest of 12-point review of system has been reviewed and is negative. PHYSICAL EXAMINATION VITAL SIGNS: Temperature 98, pulse 67, respirations 12, blood pressure 90/70. NEUROLOGIC: Awake, alert, oriented. LUNGS: Bilateral air entry, bilateral mild rhonchi. HEART: S1 plus S2. Unit #: [id number] #: [id number] Patient: ASHLEY MURRAY ABDOMEN: Nontender, soft. Positive bowel sounds. EXTREMITIES: Positive edema. DIAGNOSTIC STUDIES LABORATORY: Blood gas pH 7.42, pCO2 is 34, pO2 is 129. BUN 24, creatinine 1.2, sodium 127, potassium 3.4. Troponin 10.46. INR 1.4. White count 11, hemoglobin 13, hematocrit 39, platelet count 110. ASSESSMENT AND PLAN 1. Acute ST-elevation myocardial infarction. 2. Cardiogenic shock. 3. History of pulmonary embolism. 4. Chronic anticoagulation. 5. Critically ill patient. PLAN 1. At this point, plan is to continue current cardiac regimen, oxygen, bronchodilator. 2. Monitor hemoglobin and hematocrit. 3. GI and DVT prophylaxis. 4. Will continue to monitor patient in intensive care. May need pressor support. 5. Please see orders for detailed plan. Thank you very much for this consultation. Will continue to monitor the patient. Dictated by... Lulu Daniel/linda TD: 05/25/2016 22:44 JOB #: [id number] CONSULTATION REPORT Page 1 of 1 X Kenneth Hauser MD X CONSULTATION REPORT
--- NOTE | ~2016-05-25 | CR72 ---
[facility] A Service of [facility] & [facility] RADIOLOGY TEXT RESULTS PATIENT: ASHLEY MURRAY LOCATION: [address] : [birth year] UNIT #: [id number] AGE: [address]: Victor M Knox MD SEX: M ORDER DR: [id number] [facility] [address] [place], [place] [address] [id number] I MR#: [id number] Acc #: [id number] NAME: ASHLEY MURRAY. : 1935 SEX: M STUDY DATE/TIME: 05/30/2016 4:12 UNIT: [facility] ROOM: [facility] STUDY DESCRIPTION: CR Chest Single View Portable Attending Physician: Victor M Knox M.D. Ordering Physician: Jaye Jo M.D. Primary Care Physician: Cedric Andrews M.D. MEDICAL IMAGING REPORT This report is preliminary unless electronic signature is present EXAM Single chest radiograph INDICATION Chest pain, shortness of breath since May 25. FINDINGS Comparison made to a prior exam from yesterday. There is a right internal jugular vein central venous line which extends into the superior vena cava. There is cardiomegaly and vascular congestion not significantly changed when compared to yesterday's study. No pneumothorax is identified. Trace bilateral pleural effusions are suspected. There is some increasing consolidation noted at the left lung base. Right basilar atelectasis is stable. Dictated by... Blaire Vargas M.D. THIS IS AN ELECTRONICALLY VERIFIED REPORT Blaire Vargas M.D. at 05/30/2016 3:41 PM AFF/genoveva TD: 05/30/2016 10:28 JOB #: [id number] MEDICAL IMAGING REPORT Page 1 of 1 COPY
--- NOTE | ~2016-05-25 | FU ---
[facility] Nutrition Therapy DATE: 05/31/16 Patient: ASHLEY MURRAY Physician: NINI Address: [address] [place] [address] Room/Bed: [address] [place] [address], Zip: [place] [address] Admit Date: 05/25/16 Date of : 31 Height: 5 10 Weight: 253 115 NUTRITION MONITORING/FOLLOW-UP: Reason: F/U Anthropometrics: Ht: 5'10" Adm wt range: 240-257# Current wt: 115 kg (253#) BMI: 36.4 Labs: Na+ 134, Cl- 98, Gluc 113, Ca++ 7.9, Alb 2.4, POC 122 (05/29) Meds: Protonix, Furosemide, Thiamine, Lipitor, Zofran, Folic acid, Vitamin B12 I&O's: 1254/2150, last BM 05/31 Skin: Puncture procedural site (R groin) Edema: BLE/ankles (trace) Assessment: Chart reviewed, events noted. Visited w/ pt and pt's family today, who were very pleasant. Pt reported eating well this morning for the first time in [address] observation, pt consumed ~50% of breakfast, but pt was still gradually eating meal. Pt reports eating slowly, but has a good appetite. Pt is currently on a healthy heart diet and receiving Ensure Pudding TID. Pt states only liking butterscotch flavor. RD encouraged adequate intake. Pt and pt's family had no diet questions at this time. See recommendations below. Dx: Inadequate energy intake RT stress, current clinical condition AEB 15# wt loss. -IN PROGRESS Intervention: 1. Healthy heart diet 2. Ensure Pudding TID Monitoring, Evaluation and Goals: 1. PO intake; consume >75% of meals/supplements 2. Weight; prevent unintentional weight loss 3. Labs; WNL Recommendations: 1. Continue healthy heart diet. 2. Continue butterscotch Ensure Pudding TID. [facility] Nutrition Therapy DATE: 05/31/16 Patient: ASHLEY MURRAY Physician: NINI Address: [address] [facility] Room/Bed: [address] [place] [address], Zip: [place] [address] Admit Date: 05/25/16 Date of : 31 Height: 5 10 Weight: 253 115 3. Appreciate family and staff to encourage slow, gradual, adequate intake. Status: Pt is at a mild-moderate nutrtional risk. RD will f/u per protocol. Respectfully, Olesya [place], Psych Rn Candy Tapia MS, RD, LD [facility] cc: client file
[2016-05-25 05:07] LABS: POC - CKMB 18.7 ng/mL (0.0-7.9); POC - TROPONIN 1.42 ng/mL (<=0.05)
[2016-05-25 05:23] LABS: BASOPHIL% 0.3 % (0-2.5); HEMATOCRIT 41.1 % (38.0-50.0); HEMOGLOBIN 13.7 gm/dL (13.0-16.0); LYMPHOCYTE# 0.4 X10e3 (1.0-3.5); LYMPHOCYTE% 3.1 % (17.0-45.0); MEAN CELL VOLUME 104.9 FL (83-96); MEAN CORPUSCULAR HEMOGLOBIN 35.1 PG (28-34); MEAN CORPUSCULAR HGB CONC 33.4 g/dL (30-36); MEAN PLATELET VOLUME 7.7 FL (6.5-11.5); MONOCYTE# 0.7 X10e3 (0-1.0); MONOCYTE% 6.1 % (3.0-12.0); NEUTROPHIL# 10.4 X10e3 (1.5-7.1); NEUTROPHIL% 90.5 % (40-75); PLATELET COUNT 174 X10e3 (140-420); RED BLOOD COUNT 3.92 X10e (3.90-5.60); RED CELL DISTRIBUTION WIDTH 14.4 % (11.0-15.5); WHITE BLOOD COUNT 11.5 X10e3 (4.0-10.5)
[2016-05-25 05:25] LABS: DIFF IND NO
[~2016-05-25 05:55] MED LIST: ALLOPURINOL300 MG PO; ARTHRITIS PAIN650 M1; ASPIRIN PO; ASPIRINEC PO; CIPRO250 MG PO; COUMADIN; COUMADIN PO; COUMADIN2.5 MG; COUMADIN3 MG PO; COUMADIN5 MG PO; DIOVAN HCT 3201 EACH PO; DIOVAN PO; DISCONTINUED MED; ECOTRIN325 MG PO; FLEXERIL10 MG PO; FLOMAX0.4 M1 PO; FOLIC ACID1 MG PO; GAS RELIEF 8080 M1 PO; HYDROCODON-ACE1 EAC1; JANTOVEN2.5 MG PO; KCL PO; KEFLEX500 MG PO; KLOR-CON PO; LASIX20 MG PO; LEVAQUIN250 MG PO; LOPRESSOR PO; MULTI VITAMIN1 EACH PO; PHENERGAN25 MG; PREDNISOLONE5 MG PO; PREDNISONE PO; PREDNISONE10 MG PO; PRILOSEC PO; PROTONIX PO; SIMETHICONE PO; VALSARTAN-HCTZ1 EAC3 PO; VIT B12; VITAMINE B-1100 MG PO; ZANTAC PO; [UNRECOGNIZED DRUG - OTHER] PO
[2016-05-25 05:56] LABS: INR 1.4; PROTHROMBIN TIME (PATIENT) 15.2 SECONDS (9.6-11.5)
[2016-05-25 06:07] LABS: ALBUMIN SERUM 3.5 g/dL (3.5-5.0); ALKALINE PHOSPHATASE 44 U/L (32-92); ALT (SGPT) 42 U/L (10-40); AMYLASE 23 U/L (0-46); AST (SGOT) 32 U/L (10-42); BILIRUBIN, DIRECT 0.2 mg/dL (0.0-0.2); BILIRUBIN,INDIRECT 0.8 mg/dL (0.0-0.9); BLOOD UREA NITROGEN 23 mg/dL (9-23); BUN/CREATININE RATIO 19.16; CALCIUM SERUM 8.9 mg/dL (8.4-10.2); CARBON DIOXIDE 26 mmol/L (22-31); CHLORIDE 96 mmol/L (100-111); CREATININE SERUM 1.2 mg/dL (0.6-1.4); GLOM FILT RATE Estimated ABOVE60 mL/min (>60); GLUCOSE FASTING 167 mg/dL (70-110); LIPASE 25 U/L (22-51); POTASSIUM 4.1 mmol/L (3.5-5.1); PROTEIN TOTAL SERUM 6.9 g/dL (6.0-8.3); SODIUM 131 mmol/L (135-145)
[2016-05-25 08:12] LABS: CHOLESTEROL 123 mg/dL (0-200); HDL CHOLESTEROL 48 mg/dL (29-75); LDL CHOLESTEROL 68 mg/dL (-130); LDL/HDL RATIO 1 RATIO (0-4); TRIGLYCERIDES 37 mg/dL (10-160)
[2016-05-25 09:04] LABS: POC - CKMB 32.3 ng/mL (0.0-7.9); POC - TROPONIN 4.17 ng/mL (<=0.05)
[2016-05-25 09:29] LABS: URINE APPEARANCE CLOUDY; URINE BILIRUBIN NEG (NEG); URINE BLOOD 1+ (NEG); URINE COLOR YELLOW; URINE GLUCOSE NEG (NEG); URINE KETONE TRACE (NEG); URINE LEUKOCYTE ESTERASE 2+ (NEG); URINE NITRATE NEG (NEG); URINE PROTEIN TRACE (NEG); URINE SPECIFIC GRAVITY 1.019 (1.003-1.035)
[2016-05-25 09:31] LABS: CULTURE INDICATED? YES; URINE BACTERIA AUWI 4+ (NEGATIVE); URINE SQUAMOUS EPITHELIAL CELL NONE SEEN /[HPF]; UWBCS1 AUWI 50-100 (0-5)
[2016-05-25] MEDS ORDERED: ALLOPURINOL300 MG PO (13:43)
[2016-05-25] MEDS ORDERED: VALSARTAN-HCTZ1 EAC3 PO (13:43)
[2016-05-25] MEDS ORDERED: ECOTRIN325 MG PO (13:44)
[2016-05-25] MEDS ORDERED: FOLIC ACID1 MG PO (13:44)
[2016-05-25] MEDS ORDERED: ZANTAC150 M1 PO (13:45)
[2016-05-25] MEDS ORDERED: COUMADIN3 MG PO (13:45)
[2016-05-25] MEDS ORDERED: COLCRYS PO (13:46)
[2016-05-25] MEDS ORDERED: VIT B-12 PO (13:47)
[2016-05-25] MEDS ORDERED: [UNRECOGNIZED DRUG - OTHER] PO (13:47)
[2016-05-25 15:28] LABS: ARTERIAL BLD GAS O2 SATURATION 98.2 % (90.0-100.0); ARTERIAL BLOOD GAS ALLEN TEST NORMAL; ARTERIAL BLOOD GAS ART SITE LEFT RADIAL; ARTERIAL BLOOD GAS CARBOXY HB 0.3 %sat (0.0-9.0); ARTERIAL BLOOD GAS DELIVERY OXIMYZER; ARTERIAL BLOOD GAS HCO3 22.5 mmol/L; ARTERIAL BLOOD GAS MET HB 0.6 %sat (0.0-2.0); ARTERIAL BLOOD GAS PCO2 34.5 mmHg (35.0-45.0); ARTERIAL BLOOD GAS pH 7.422 (7.350-7.450); ARTERIAL DRAW? YES
[2016-05-25 15:32] LABS: BASOPHIL# 0.1 X10e3 (0-0.3); BASOPHIL% 0.5 % (0-2.5); EOSINOPHIL% 0.2 % (0.0-7.0); HEMATOCRIT 43.7 % (38.0-50.0); HEMOGLOBIN 14.6 gm/dL (13.0-16.0); LYMPHOCYTE# 1.6 X10e3 (1.0-3.5); LYMPHOCYTE% 14.2 % (17.0-45.0); MEAN CELL VOLUME 105.8 FL (83-96); MEAN CORPUSCULAR HEMOGLOBIN 35.4 PG (28-34); MEAN CORPUSCULAR HGB CONC 33.5 g/dL (30-36); MEAN PLATELET VOLUME 7.8 FL (6.5-11.5); MONOCYTE# 0.3 X10e3 (0-1.0); MONOCYTE% 2.7 % (3.0-12.0); NEUTROPHIL# 9.5 X10e3 (1.5-7.1); NEUTROPHIL% 82.4 % (40-75); PLATELET COUNT 143 X10e3 (140-420); RED BLOOD COUNT 4.13 X10e (3.90-5.60); RED CELL DISTRIBUTION WIDTH 14.5 % (11.0-15.5); WHITE BLOOD COUNT 11.5 X10e3 (4.0-10.5)
[2016-05-25 15:40] LABS: DIFF IND YES
[2016-05-25 15:53] LABS: ANISOCYTOSIS SL; PLATELET ESTIMATE NORMAL (NORMAL)
[2016-05-25 16:49] LABS: %MB 15.1 % (0.0-4.0); MB 63.7 ng/ml
[2016-05-25 17:31] LABS: HEMATOCRIT 39.5 % (38.0-50.0); HEMOGLOBIN 13.2 gm/dL (13.0-16.0)
[2016-05-25 19:09] LABS: CALCIUM SERUM 7.8 mg/dL (8.4-10.2); CREATININE SERUM 1.2 mg/dL (0.6-1.4); GLOM FILT RATE Estimated 55.6 mL/min (>60); POTASSIUM 3.4 mmol/L (3.5-5.1)
[2016-05-25 21:40] LABS: ANGIO MB 24.5 ng/ml
[2016-05-25 23:49] LABS: %MB 6.9 % (0.0-4.0); MB 23.9 ng/ml
[2016-05-26 04:41] LABS: HEMATOCRIT 38.3 % (38.0-50.0); HEMOGLOBIN 12.7 gm/dL (13.0-16.0); LYMPHOCYTE# 0.3 X10e3 (1.0-3.5); LYMPHOCYTE% 1.5 % (17.0-45.0); MEAN CORPUSCULAR HEMOGLOBIN 34.8 PG (28-34); MEAN CORPUSCULAR HGB CONC 33.1 g/dL (30-36); MEAN PLATELET VOLUME 8.7 FL (6.5-11.5); MONOCYTE# 0.6 X10e3 (0-1.0); MONOCYTE% 3.6 % (3.0-12.0); NEUTROPHIL# 16.3 X10e3 (1.5-7.1); NEUTROPHIL% 94.9 % (40-75); PLATELET COUNT 111 X10e3 (140-420); RED BLOOD COUNT 3.65 X10e (3.90-5.60); RED CELL DISTRIBUTION WIDTH 14.3 % (11.0-15.5); WHITE BLOOD COUNT 17.2 X10e3 (4.0-10.5)
[2016-05-26 04:42] LABS: DIFF IND NO
[2016-05-26 04:47] LABS: ARTERIAL BLD GAS O2 SATURATION 96.7 % (90.0-100.0); ARTERIAL BLOOD GAS CARBOXY HB 0.2 %sat (0.0-9.0); ARTERIAL BLOOD GAS HCO3 20.3 mmol/L; ARTERIAL BLOOD GAS MET HB 0.9 %sat (0.0-2.0); ARTERIAL BLOOD GAS pH 7.209 (7.350-7.450)
[2016-05-26 04:53] LABS: INR 1.5; PROTHROMBIN TIME (PATIENT) 16.4 SECONDS (9.6-11.5)
[2016-05-26 04:58] LABS: ARTERIAL BLOOD GAS ART SITE RIGHT BRACHIAL; ARTERIAL BLOOD GAS DELIVERY OXYMIZER; ARTERIAL DRAW? YES
[2016-05-26 06:00] LABS: ALBUMIN SERUM 2.7 g/dL (3.5-5.0); BILIRUBIN,TOTAL 1.2 mg/dL (0.2-2.0); BUN/CREATININE RATIO 19.28; CALCIUM SERUM 7.8 mg/dL (8.4-10.2); CREATININE SERUM 1.4 mg/dL (0.6-1.4); GLOM FILT RATE Estimated 46.2 mL/min (>60); POTASSIUM 3.9 mmol/L (3.5-5.1); PROTEIN TOTAL SERUM 5.6 g/dL (6.0-8.3)
[2016-05-26 06:20] LABS: ANGIO MB 25.3 ng/ml
[2016-05-26 09:13] LABS: ARTERIAL BLD GAS O2 SATURATION 95.8 % (90.0-100.0); ARTERIAL BLOOD GAS CARBOXY HB 0.5 %sat (0.0-9.0); ARTERIAL BLOOD GAS MET HB 0.4 %sat (0.0-2.0); ARTERIAL BLOOD GAS PCO2 44.2 mmHg (35.0-45.0); ARTERIAL BLOOD GAS pH 7.454 (7.350-7.450)
[2016-05-26 09:17] LABS: ARTERIAL BLOOD GAS ALLEN TEST NORMAL; ARTERIAL BLOOD GAS ART SITE RIGHT RADIAL; ARTERIAL BLOOD GAS DELIVERY NASAL CANNULA; ARTERIAL BLOOD GAS PO2 79.2 mmHg (80.0-100); ARTERIAL DRAW? YES
[2016-05-26 10:00] LABS: INFLUENZA A NEG (NEG); INFLUENZA B NEG (NEG)
[2016-05-26 16:18] LABS: BASOPHIL% 0.1 % (0-2.5); HEMATOCRIT 34.6 % (38.0-50.0); HEMOGLOBIN 11.9 gm/dL (13.0-16.0); LYMPHOCYTE# 0.6 X10e3 (1.0-3.5); LYMPHOCYTE% 3.8 % (17.0-45.0); MEAN CELL VOLUME 103.3 FL (83-96); MEAN CORPUSCULAR HEMOGLOBIN 35.5 PG (28-34); MEAN CORPUSCULAR HGB CONC 34.4 g/dL (30-36); MEAN PLATELET VOLUME 8.3 FL (6.5-11.5); MONOCYTE% 5.8 % (3.0-12.0); NEUTROPHIL% 90.3 % (40-75); PLATELET COUNT 104 X10e3 (140-420); RED BLOOD COUNT 3.35 X10e (3.90-5.60); RED CELL DISTRIBUTION WIDTH 14.5 % (11.0-15.5); WHITE BLOOD COUNT 16.6 X10e3 (4.0-10.5)
[2016-05-26 16:19] LABS: DIFF IND NO
[2016-05-26 16:52] LABS: %MB 8.8 % (0.0-4.0); MB 25.6 ng/ml
[2016-05-26 16:56] LABS: ALBUMIN SERUM 2.7 g/dL (3.5-5.0); BILIRUBIN,TOTAL 1.1 mg/dL (0.2-2.0); BUN/CREATININE RATIO 27.5; CALCIUM SERUM 7.6 mg/dL (8.4-10.2); CREATININE SERUM 1.2 mg/dL (0.6-1.4); GLOM FILT RATE Estimated 55.6 mL/min (>60); POTASSIUM 3.5 mmol/L (3.5-5.1); PROTEIN TOTAL SERUM 5.8 g/dL (6.0-8.3)
[2016-05-26 18:21] LABS: HEMATOCRIT 36.7 % (38.0-50.0); HEMOGLOBIN 12.5 gm/dL (13.0-16.0)
[2016-05-27 04:07] LABS: ARTERIAL BLD GAS O2 SATURATION 92.4 % (90.0-100.0); ARTERIAL BLOOD GAS CARBOXY HB 0.4 %sat (0.0-9.0); ARTERIAL BLOOD GAS HCO3 27.9 mmol/L; ARTERIAL BLOOD GAS MET HB 0.8 %sat (0.0-2.0); ARTERIAL BLOOD GAS PCO2 47.5 mmHg (35.0-45.0); ARTERIAL BLOOD GAS PO2 66.1 mmHg (80.0-100); ARTERIAL BLOOD GAS pH 7.377 (7.350-7.450); ARTERIAL DRAW? YES
[2016-05-27 04:08] LABS: ARTERIAL BLOOD GAS ALLEN TEST NORMAL; ARTERIAL BLOOD GAS ART SITE RIGHT BRACHIAL; ARTERIAL BLOOD GAS DELIVERY NASAL CANNULA; ARTERIAL BLOOD GAS LITER FLOW 2.5
[2016-05-27 04:31] LABS: BASOPHIL% 0.1 % (0-2.5); HEMATOCRIT 33.6 % (38.0-50.0); HEMOGLOBIN 11.2 gm/dL (13.0-16.0); LYMPHOCYTE# 0.5 X10e3 (1.0-3.5); LYMPHOCYTE% 3.5 % (17.0-45.0); MEAN CELL VOLUME 104.4 FL (83-96); MEAN CORPUSCULAR HEMOGLOBIN 34.8 PG (28-34); MEAN CORPUSCULAR HGB CONC 33.4 g/dL (30-36); MEAN PLATELET VOLUME 8.4 FL (6.5-11.5); MONOCYTE% 6.6 % (3.0-12.0); NEUTROPHIL# 13.8 X10e3 (1.5-7.1); NEUTROPHIL% 89.8 % (40-75); PLATELET COUNT 113 X10e3 (140-420); RED BLOOD COUNT 3.22 X10e (3.90-5.60); RED CELL DISTRIBUTION WIDTH 14.5 % (11.0-15.5); WHITE BLOOD COUNT 15.4 X10e3 (4.0-10.5)
[2016-05-27 04:33] LABS: DIFF IND NO
[2016-05-27 05:41] LABS: ALBUMIN SERUM 2.5 g/dL (3.5-5.0); BILIRUBIN,TOTAL 0.7 mg/dL (0.2-2.0); BUN/CREATININE RATIO 26.66; CALCIUM SERUM 7.5 mg/dL (8.4-10.2); CREATININE SERUM 1.2 mg/dL (0.6-1.4); GLOM FILT RATE Estimated 55.6 mL/min (>60); MAGNESIUM 2.3 mg/dL (1.6-3.0); PROTEIN TOTAL SERUM 5.4 g/dL (6.0-8.3)
[2016-05-28 03:24] LABS: BASOPHIL% 0.2 % (0-2.5); HEMATOCRIT 28.3 % (38.0-50.0); HEMOGLOBIN 9.7 gm/dL (13.0-16.0); LYMPHOCYTE# 0.8 X10e3 (1.0-3.5); LYMPHOCYTE% 7.7 % (17.0-45.0); MEAN CELL VOLUME 104.9 FL (83-96); MEAN CORPUSCULAR HGB CONC 34.3 g/dL (30-36); MEAN PLATELET VOLUME 8.3 FL (6.5-11.5); MONOCYTE# 0.6 X10e3 (0-1.0); NEUTROPHIL# 8.6 X10e3 (1.5-7.1); NEUTROPHIL% 86.1 % (40-75); PLATELET COUNT 85 X10e3 (140-420); RED CELL DISTRIBUTION WIDTH 14.5 % (11.0-15.5)
[2016-05-28 03:26] LABS: DIFF IND YES
[2016-05-28 03:48] LABS: ANISOCYTOSIS SL; PLATELET ESTIMATE DECREASED (NORMAL)
[2016-05-28 03:49] LABS: ALBUMIN SERUM 2.5 g/dL (3.5-5.0); BILIRUBIN,TOTAL 0.6 mg/dL (0.2-2.0); BUN/CREATININE RATIO 22.22; CALCIUM SERUM 7.5 mg/dL (8.4-10.2); CREATININE SERUM 0.9 mg/dL (0.6-1.4); GLOM FILT RATE Estimated 78.7 mL/min (>60); MAGNESIUM 2.4 mg/dL (1.6-3.0); POTASSIUM 4.3 mmol/L (3.5-5.1); PROTEIN TOTAL SERUM 5.4 g/dL (6.0-8.3)
[2016-05-28 04:17] LABS: %MB 5.5 % (0.0-4.0); MB 6.5 ng/ml
[2016-05-28 17:41] LABS: BASOPHIL% 0.2 % (0-2.5); EOSINOPHIL% 0.1 % (0.0-7.0); HEMATOCRIT 27.5 % (38.0-50.0); HEMOGLOBIN 9.3 gm/dL (13.0-16.0); LYMPHOCYTE# 0.5 X10e3 (1.0-3.5); LYMPHOCYTE% 5.6 % (17.0-45.0); MEAN CELL VOLUME 105.4 FL (83-96); MEAN CORPUSCULAR HEMOGLOBIN 35.8 PG (28-34); MEAN CORPUSCULAR HGB CONC 33.9 g/dL (30-36); MEAN PLATELET VOLUME 8.4 FL (6.5-11.5); MONOCYTE# 0.5 X10e3 (0-1.0); MONOCYTE% 5.4 % (3.0-12.0); NEUTROPHIL# 8.6 X10e3 (1.5-7.1); NEUTROPHIL% 88.7 % (40-75); RED BLOOD COUNT 2.61 X10e (3.90-5.60); RED CELL DISTRIBUTION WIDTH 14.5 % (11.0-15.5); WHITE BLOOD COUNT 9.6 X10e3 (4.0-10.5)
[2016-05-28 18:15] LABS: DIFF IND YES; PLATELET COUNT 80 X10e3 (140-420)
[2016-05-28 18:17] LABS: PLATELET ESTIMATE DECREASED (NORMAL)
[2016-05-29 04:05] LABS: BASOPHIL% 0.1 % (0-2.5); DIFF IND NO; EOSINOPHIL% 0.3 % (0.0-7.0); HEMATOCRIT 27.7 % (38.0-50.0); HEMOGLOBIN 9.2 gm/dL (13.0-16.0); LYMPHOCYTE# 0.7 X10e3 (1.0-3.5); LYMPHOCYTE% 7.8 % (17.0-45.0); MEAN CELL VOLUME 106.1 FL (83-96); MEAN CORPUSCULAR HEMOGLOBIN 35.3 PG (28-34); MEAN CORPUSCULAR HGB CONC 33.3 g/dL (30-36); MEAN PLATELET VOLUME 8.6 FL (6.5-11.5); MONOCYTE# 0.5 X10e3 (0-1.0); MONOCYTE% 5.7 % (3.0-12.0); NEUTROPHIL# 7.2 X10e3 (1.5-7.1); NEUTROPHIL% 86.1 % (40-75); PLATELET COUNT 78 X10e3 (140-420); RED BLOOD COUNT 2.61 X10e (3.90-5.60); RED CELL DISTRIBUTION WIDTH 14.5 % (11.0-15.5); WHITE BLOOD COUNT 8.4 X10e3 (4.0-10.5)
[2016-05-29 04:19] LABS: ALBUMIN SERUM 2.3 g/dL (3.5-5.0); BILIRUBIN,TOTAL 0.4 mg/dL (0.2-2.0); BUN/CREATININE RATIO 14.44; CALCIUM SERUM 7.5 mg/dL (8.4-10.2); CREATININE SERUM 0.9 mg/dL (0.6-1.4); GLOM FILT RATE Estimated 78.7 mL/min (>60); MAGNESIUM 2.2 mg/dL (1.6-3.0); PHOSPHOROUS 2.5 mg/dL (2.5-4.6); POTASSIUM 4.6 mmol/L (3.5-5.1); PROTEIN TOTAL SERUM 5.5 g/dL (6.0-8.3)
[2016-05-30 06:12] LABS: BASOPHIL% 0.2 % (0-2.5); EOSINOPHIL# 0.1 X10e3 (0-0.7); EOSINOPHIL% 1.1 % (0.0-7.0); HEMATOCRIT 28.8 % (38.0-50.0); HEMOGLOBIN 9.7 gm/dL (13.0-16.0); LYMPHOCYTE# 0.8 X10e3 (1.0-3.5); LYMPHOCYTE% 9.4 % (17.0-45.0); MEAN CELL VOLUME 104.6 FL (83-96); MEAN CORPUSCULAR HEMOGLOBIN 35.3 PG (28-34); MEAN CORPUSCULAR HGB CONC 33.7 g/dL (30-36); MEAN PLATELET VOLUME 8.8 FL (6.5-11.5); MONOCYTE# 0.5 X10e3 (0-1.0); MONOCYTE% 6.6 % (3.0-12.0); NEUTROPHIL# 6.9 X10e3 (1.5-7.1); NEUTROPHIL% 82.7 % (40-75); RED BLOOD COUNT 2.76 X10e (3.90-5.60); RED CELL DISTRIBUTION WIDTH 14.5 % (11.0-15.5); WHITE BLOOD COUNT 8.3 X10e3 (4.0-10.5)
[2016-05-30 06:16] LABS: PLATELET COUNT 100 X10e3 (140-420)
[2016-05-30 06:17] LABS: DIFF IND NO
[2016-05-30 07:20] LABS: ALBUMIN SERUM 2.4 g/dL (3.5-5.0); BILIRUBIN,TOTAL 0.6 mg/dL (0.2-2.0); CALCIUM SERUM 7.8 mg/dL (8.4-10.2); CREATININE SERUM 0.8 mg/dL (0.6-1.4); GLOM FILT RATE Estimated 82.6 mL/min (>60); MAGNESIUM 1.9 mg/dL (1.6-3.0); PHOSPHOROUS 2.5 mg/dL (2.5-4.6); POTASSIUM 4.2 mmol/L (3.5-5.1); PROTEIN TOTAL SERUM 5.3 g/dL (6.0-8.3)
[2016-05-31 06:22] LABS: BASOPHIL% 0.1 % (0-2.5); EOSINOPHIL# 0.1 X10e3 (0-0.7); EOSINOPHIL% 1.7 % (0.0-7.0); HEMATOCRIT 27.4 % (38.0-50.0); HEMOGLOBIN 9.3 gm/dL (13.0-16.0); LYMPHOCYTE# 0.9 X10e3 (1.0-3.5); LYMPHOCYTE% 12.9 % (17.0-45.0); MEAN CELL VOLUME 104.5 FL (83-96); MEAN CORPUSCULAR HEMOGLOBIN 35.4 PG (28-34); MEAN CORPUSCULAR HGB CONC 33.9 g/dL (30-36); MEAN PLATELET VOLUME 8.5 FL (6.5-11.5); MONOCYTE# 0.7 X10e3 (0-1.0); MONOCYTE% 9.3 % (3.0-12.0); NEUTROPHIL# 5.5 X10e3 (1.5-7.1); PLATELET COUNT 131 X10e3 (140-420); RED BLOOD COUNT 2.62 X10e (3.90-5.60); RED CELL DISTRIBUTION WIDTH 14.7 % (11.0-15.5); WHITE BLOOD COUNT 7.3 X10e3 (4.0-10.5)
[2016-05-31 06:26] LABS: DIFF IND NO
[2016-05-31 07:10] LABS: BUN/CREATININE RATIO 16.66; CALCIUM SERUM 7.9 mg/dL (8.4-10.2); CREATININE SERUM 0.9 mg/dL (0.6-1.4); GLOM FILT RATE Estimated 78.7 mL/min (>60); MAGNESIUM 1.9 mg/dL (1.6-3.0); PHOSPHOROUS 2.6 mg/dL (2.5-4.6); POTASSIUM 3.8 mmol/L (3.5-5.1)
[2016-06-02 05:58] LABS: HEMATOCRIT 27.8 % (38.0-50.0); HEMOGLOBIN 9.7 gm/dL (13.0-16.0); MEAN CELL VOLUME 103.7 FL (83-96); MEAN CORPUSCULAR HEMOGLOBIN 36.1 PG (28-34); MEAN CORPUSCULAR HGB CONC 34.8 g/dL (30-36); MEAN PLATELET VOLUME 8.2 FL (6.5-11.5); RED BLOOD COUNT 2.68 X10e (3.90-5.60); RED CELL DISTRIBUTION WIDTH 14.8 % (11.0-15.5); WHITE BLOOD COUNT 7.6 X10e3 (4.0-10.5)
[2016-06-02 06:21] LABS: CALCIUM SERUM 7.7 mg/dL (8.4-10.2); CREATININE SERUM 1.1 mg/dL (0.6-1.4); GLOM FILT RATE Estimated 61.8 mL/min (>60); POTASSIUM 3.4 mmol/L (3.5-5.1)
[2016-06-03 11:02] LABS: HEMATOCRIT 29.2 % (38.0-50.0); HEMOGLOBIN 9.8 gm/dL (13.0-16.0); MEAN CELL VOLUME 103.9 FL (83-96); MEAN CORPUSCULAR HGB CONC 33.7 g/dL (30-36); MEAN PLATELET VOLUME 8.5 FL (6.5-11.5); RED BLOOD COUNT 2.81 X10e (3.90-5.60); RED CELL DISTRIBUTION WIDTH 14.6 % (11.0-15.5); WHITE BLOOD COUNT 9.2 X10e3 (4.0-10.5)
[2016-06-03 11:32] LABS: BUN/CREATININE RATIO 22.72; CALCIUM SERUM 8.3 mg/dL (8.4-10.2); CREATININE SERUM 1.1 mg/dL (0.6-1.4); GLOM FILT RATE Estimated 61.8 mL/min (>60); MAGNESIUM 2.1 mg/dL (1.6-3.0); POTASSIUM 3.7 mmol/L (3.5-5.1)
[2016-06-04 06:50] LABS: HEMATOCRIT 27.3 % (38.0-50.0); HEMOGLOBIN 9.2 gm/dL (13.0-16.0); MEAN CELL VOLUME 104.2 FL (83-96); MEAN CORPUSCULAR HEMOGLOBIN 35.2 PG (28-34); MEAN CORPUSCULAR HGB CONC 33.8 g/dL (30-36); MEAN PLATELET VOLUME 8.3 FL (6.5-11.5); RED BLOOD COUNT 2.62 X10e (3.90-5.60); RED CELL DISTRIBUTION WIDTH 15.1 % (11.0-15.5); WHITE BLOOD COUNT 7.9 X10e3 (4.0-10.5)
[2016-06-04 07:00] LABS: INR 1.1; PROTHROMBIN TIME (PATIENT) 11.4 SECONDS (9.6-11.5)
[2016-06-04 07:33] LABS: BUN/CREATININE RATIO 22.72; CALCIUM SERUM 8.2 mg/dL (8.4-10.2); CREATININE SERUM 1.1 mg/dL (0.6-1.4); GLOM FILT RATE Estimated 61.8 mL/min (>60); POTASSIUM 4.1 mmol/L (3.5-5.1)
[2016-06-05 07:13] LABS: CREATININE SERUM 0.8 mg/dL (0.6-1.4); GLOM FILT RATE Estimated 82.6 mL/min (>60); POTASSIUM 3.8 mmol/L (3.5-5.1)
== END 2016-06-05 18:42 | DRG 270 ==
LOC: CED 05:55 → CEDOF 07:12 → CICCU3 15:56 → C5C 05-30 18:40
PROVIDERS: Emergency Medicine; Internal Medicine; Internal Medicine Cardiovascular Disease; Internal Medicine Nephrology; Internal Medicine Pulmonary Disease; Nurse Practitioner; Nurse Practitioner Family
PROC: 027035Z Dilation of Coronary Artery, One Artery with Two Drug-eluting Intraluminal Devices, Percutaneous Approach (ICD-10-PCS; principal; 2016-05-25)
PROC: 5A02210 Assistance with Cardiac Output using Balloon Pump, Continuous (ICD-10-PCS; 2016-05-25)
PROC: 02713DZ Dilation of Coronary Artery, Two Arteries with Intraluminal Device, Percutaneous Approach (ICD-10-PCS; 2016-05-25)
PROC: 4A023N7 Measurement of Cardiac Sampling and Pressure, Left Heart, Percutaneous Approach (ICD-10-PCS; 2016-05-25)
PROC: B211YZZ Fluoroscopy of Multiple Coronary Arteries using Other Contrast (ICD-10-PCS; 2016-05-25)
PROC: B215YZZ Fluoroscopy of Left Heart using Other Contrast (ICD-10-PCS; 2016-05-25)
PROC: 05HM33Z Insertion of Infusion Device into Right Internal Jugular Vein, Percutaneous Approach (ICD-10-PCS; 2016-05-25)
PROC: B543ZZA Ultrasonography of Right Jugular Veins, Guidance (ICD-10-PCS; 2016-05-25)
PROC: B24BZZZ Ultrasonography of Heart with Aorta (ICD-10-PCS; 2016-05-25)
DX: I21.09 ST elevation (STEMI) myocardial infarction involving other coronary artery of anterior wall (principal); J96.21 Acute and chronic respiratory failure with hypoxia; A41.51 Sepsis due to Escherichia coli [E. coli]; R57.0 Cardiogenic shock; N17.9 Acute kidney failure, unspecified; D69.6 Thrombocytopenia, unspecified; E87.1 Hypo-osmolality and hyponatremia; I50.20 Unspecified systolic (congestive) heart failure; N39.0 Urinary tract infection, site not specified; K92.2 Gastrointestinal hemorrhage, unspecified; I11.0 Hypertensive heart disease with heart failure; I48.0 Paroxysmal atrial fibrillation; I25.10 Atherosclerotic heart disease of native coronary artery without angina pectoris; Z95.5 Presence of coronary angioplasty implant and graft; I35.0 Nonrheumatic aortic (valve) stenosis; M32.9 Systemic lupus erythematosus, unspecified; F10.20 Alcohol dependence, uncomplicated; I25.5 Ischemic cardiomyopathy; Z79.01 Long term (current) use of anticoagulants; N40.1 Benign prostatic hyperplasia with lower urinary tract symptoms; R33.8 Other retention of urine; Z79.82 Long term (current) use of aspirin; E66.9 Obesity, unspecified; Z68.34 Body mass index [BMI] 34.0-34.9, adult; K44.9 Diaphragmatic hernia without obstruction or gangrene; M10.9 Gout, unspecified; M35.3 Polymyalgia rheumatica; D64.9 Anemia, unspecified; E87.6 Hypokalemia
CPT/HCPCS: 36415; 36600; 71010; 74000; 74176; 80048; 80053; 80061; 80076; 81003; 82150; 82274; 82308; 82550; 82553; 82803; 82947; 83605; 83690; 83735; 83880; 84100; 84443; 84484; 84550; 85014; 85018; 85025; 85027; 85049; 85347; 85610; 85730; 86022; 87040; 87045; 87077; 87086; 87088; 87186; 87427; 87493; 87633; 87804; 87899; 93005; 93306; 93970; 94640; 94760; 96360; 97110; 97116; 97163; 97167; 97530; 99285; C1725; C1769; C1874; C1887; C1894; C9113; J0282; J0696; J1170; J1200; J1265; J1327; J1644; J1650; J1940; J2250; J2370; J2405; J2543; J2930; J3010; J3475; J3480

== ENCOUNTER → 2016-09-20 | Outpatient (CLI) | payer MEDICARE, OTHER ==
[~2016-09-20] MED LIST changes: +COLCRYS PO; +VIT B-12 PO; +ZANTAC150 M1 PO; +[UNRECOGNIZED DRUG - OTHER] PO
[2016-09-20 17:07] LABS: BUN/CREATININE RATIO 15.38; CREATININE SERUM 1.3 mg/dL (0.6-1.4); GLOM FILT RATE Estimated 50.5 mL/min (>60); MAGNESIUM 1.9 mg/dL (1.6-3.0); POTASSIUM 4.4 mmol/L (3.5-5.1)
== END | disposition home or self-care (01) ==
LOC: CLAB 16:15
PROVIDERS: Internal Medicine Cardiovascular Disease
DX: I50.9 Heart failure, unspecified (principal); I25.10 Atherosclerotic heart disease of native coronary artery without angina pectoris
CPT/HCPCS: 36415; 80048; 83735